=== PATIENT | female | born 1950 | race Caucasian/White ===

== ENCOUNTER 2017-11-28 08:43 | Emergency (ER) | payer BC ==
[2017-11-28] MEDS: ONDANSETRON PF 4 MG/2 ML VIAL. IV (09:23)
[2017-11-28 09:26] LABS: ADD MAN DIFF? NO
[2017-11-28 09:28] LABS: BASO % 0 % (0-3); EOS # 0.2 x10^3/uL (0.0-0.7); EOS % 2 % (0-3); HEMATOCRIT 40.8 % (36.0-47.0); HEMOGLOBIN 13.6 g/dL (12.0-15.5); LYMPH # 1.5 x10^3/uL (1.0-4.8); LYMPH % 14 % (24-48); MEAN CORPUSCULAR HEMOGLOBIN 30 pg (25-35); MEAN CORPUSCULAR HGB CONC 33 g/dL (31-37); MEAN CORPUSCULAR VOLUME 90 fL (79-100); MONO # 0.8 x10^3/uL (0.0-1.1); MONO % 8 % (0-9); NEUT # 8.2 x10^3uL (1.8-7.7); NEUT % 76 % (31-73); PLATELET COUNT 321 x10^3/uL (140-400); RED BLOOD COUNT 4.51 x10^6/uL (3.50-5.40); RED CELL DISTRIBUTION WIDTH 14.3 % (11.5-14.5); WHITE BLOOD COUNT 10.8 x10^3/uL (4.0-11.0)
[2017-11-28] MEDS: fentaNYL PF VIAL 100 MCG/2 ML VIAL IV (09:52)
[2017-11-28 09:54] LABS: BILIRUBIN,URINE NEGATIVE (NEG); CLARITY,URINE CLEAR; COLOR,URINE YELLOW; GLUCOSE,URINE NEGATIVE (NEG); NITRITE,URINE NEGATIVE (NEG); PH,URINE 7.5; PROTEIN,URINE NEGATIVE (NEG-TRACE); UROBILINOGEN,URINE 0.2 mg/dL (0.2 mg/dL)
[2017-11-28 10:05] LABS: SQUAMOUS EPITHELIAL CELL,UR MOD /LPF
[2017-11-28 10:06] LABS: BACTERIA,URINE FEW /HPF (0-FEW); RBC,URINE OCC /HPF (0-2)
[2017-11-28 10:17] LABS: ANION GAP 9 (6-14); BLOOD UREA NITROGEN 15 mg/dL (7-20); BUN/CREATININE RATIO 19 (6-20); CALCIUM 9.8 mg/dL (8.5-10.1); CARBON DIOXIDE 26 mmol/L (21-32); CHLORIDE 105 mmol/L (98-107); CREATININE 0.8 mg/dL (0.6-1.0); GLUCOSE 106 mg/dL (70-99); SODIUM 140 mmol/L (136-145)
[2017-11-28 10:22] LABS: LI 0.3 mmol/L (0.6-1.2)
[2017-11-28 10:23] LABS: ALBUMIN 3.6 g/dL (3.4-5.0); ALK PHOS 75 U/L (46-116); ALT (SGPT) 52 U/L (14-59); AST (SGOT) 29 U/L (15-37); LIPASE 146 U/L (73-393); TOTAL BILIRUBIN 0.5 mg/dL (0.2-1.0); TOTAL PROTEIN 7.3 g/dL (6.4-8.2)
== END 2017-11-28 12:00 | disposition home or self-care (01) ==
LOC: ER 08:43
DX: R10.31 Right lower quadrant pain (principal); R19.7 Diarrhea, unspecified; Z91.040 Latex allergy status
CPT/HCPCS: 36415; 80053; 80178; 81001; 83690; 85025; 87086; 96374; 96375; 99284-25; J2405; J3010

== ENCOUNTER 2017-11-29 07:13 | Inpatient (IN) | payer BC, MEDICARE ==
[2017-11-29 07:43] LABS: ADD MAN DIFF? NO
[2017-11-29 07:47] LABS: BASO % 0 % (0-3); EOS # 0.2 x10^3/uL (0.0-0.7); EOS % 2 % (0-3); HEMATOCRIT 43.6 % (36.0-47.0); HEMOGLOBIN 14.5 g/dL (12.0-15.5); LYMPH # 2.1 x10^3/uL (1.0-4.8); LYMPH % 18 % (24-48); MEAN CORPUSCULAR HEMOGLOBIN 31 pg (25-35); MEAN CORPUSCULAR HGB CONC 33 g/dL (31-37); MEAN CORPUSCULAR VOLUME 92 fL (79-100); MONO # 0.7 x10^3/uL (0.0-1.1); MONO % 6 % (0-9); NEUT # 8.9 x10^3uL (1.8-7.7); NEUT % 74 % (31-73); PLATELET COUNT 382 x10^3/uL (140-400); RED BLOOD COUNT 4.75 x10^6/uL (3.50-5.40); RED CELL DISTRIBUTION WIDTH 14.4 % (11.5-14.5)
[2017-11-29] MEDS ORDERED: CONTRAST GIVEN MC (08:00)
[2017-11-29 08:01] LABS: ANION GAP 15 (6-14); BLOOD UREA NITROGEN 16 mg/dL (7-20); BUN/CREATININE RATIO 16 (6-20); CALCIUM 8.9 mg/dL (8.5-10.1); CARBON DIOXIDE 22 mmol/L (21-32); CHLORIDE 105 mmol/L (98-107); GFR 55.6; GLUCOSE 146 mg/dL (70-99); POTASSIUM 4.1 mmol/L (3.5-5.1); SODIUM 142 mmol/L (136-145)
[2017-11-29 08:03] LABS: ALBUMIN 3.9 g/dL (3.4-5.0); ALBUMIN/GLOBULIN RATIO 1.1 (1.0-1.7); ALK PHOS 80 U/L (46-116); ALT (SGPT) 46 U/L (14-59); AST (SGOT) 21 U/L (15-37); LIPASE 113 U/L (73-393); TOTAL BILIRUBIN 0.5 mg/dL (0.2-1.0); TOTAL PROTEIN 7.4 g/dL (6.4-8.2)
[2017-11-29 08:05] LABS: TROPONINI < 0.017 ng/mL (0.000-0.055)
[2017-11-29 08:24] LABS: COLOR,URINE YELLOW
[2017-11-29 08:25] LABS: BACTERIA,URINE FEW /HPF (0-FEW); BILIRUBIN,URINE SMALL (NEG); CLARITY,URINE CLEAR; GLUCOSE,URINE NEGATIVE (NEG); NITRITE,URINE NEGATIVE (NEG); PH,URINE 5.5; PROTEIN,URINE 30 mg/dL (NEG-TRACE); RBC,URINE RARE /HPF (0-2); SQUAMOUS EPITHELIAL CELL,UR MOD /LPF; UROBILINOGEN,URINE 0.2 mg/dL (0.2 mg/dL); WBC,URINE OCC /HPF (0-4)
[2017-11-29 08:26] LABS: HYALINE CASTS, URINE FEW /HPF
[2017-11-29] MEDS: IOHEXOL 300 MG/ML 100ML VIAL. IV (08:47)
[2017-11-29] MEDS: ONDANSETRON PF 4 MG/2 ML VIAL. IV (09:05)
[2017-11-29] MEDS: IV NORMAL SALINE 1000ML BAG 1,000 ML IV (09:05)
[2017-11-29] MEDS: fentaNYL PF VIAL 100 MCG/2 ML VIAL IV (09:07)
[2017-11-29 09:59] LABS: FECAL OB PT POSITIVE (NEG); NEG OBC FOB NEG; POS OBC FOB POS
[2017-11-29] MEDS ORDERED: ACETAMINOPHEN 325 MG TABLET. PO (10:45)
[2017-11-29] MEDS ORDERED: ONDANSETRON PF 4 MG/2 ML VIAL. IV (10:45)
[2017-11-29] MEDS ORDERED: LORazepam 0.5 MG TABLET PO (16:15)
[2017-11-29] MEDS: POLYETHYLENE GLYCOL 3350 17 GM PACKET. PO (16:40)
[2017-11-29] MEDS: PANTOPRAZOLE IV PUSH 40 MG VIAL. IVP (16:41)
[2017-11-29] MEDS: ONDANSETRON ODT 4 MG TAB.RAPDIS. PO (17:20)
[2017-11-29] MEDS: MORPHINE SULFATE 4 MG/ML DISP.SYRIN. IV (17:21)
[2017-11-29] MEDS ORDERED: MAGNESIUM CITRATE 296 ML SOLUTION. PO (18:00)
[2017-11-29] MEDS: ALBUTEROL SULFATE 2.5 MG/3 ML NEBU. NEB (22:27)
[2017-11-30] MEDS: ONDANSETRON ODT 4 MG TAB.RAPDIS. PO ×4 (00:35→17:29)
[2017-11-30] MEDS: MORPHINE SULFATE 4 MG/ML DISP.SYRIN. IV (03:27)
[2017-11-30 05:40] LABS: ADD MAN DIFF? NO
[2017-11-30 05:46] LABS: BASO % 1 % (0-3); EOS # 0.3 x10^3/uL (0.0-0.7); EOS % 5 % (0-3); HEMATOCRIT 38.7 % (36.0-47.0); HEMOGLOBIN 12.7 g/dL (12.0-15.5); LYMPH % 28 % (24-48); MEAN CORPUSCULAR HEMOGLOBIN 30 pg (25-35); MEAN CORPUSCULAR HGB CONC 33 g/dL (31-37); MEAN CORPUSCULAR VOLUME 92 fL (79-100); MONO # 0.5 x10^3/uL (0.0-1.1); MONO % 7 % (0-9); NEUT % 59 % (31-73); PLATELET COUNT 286 x10^3/uL (140-400); RED BLOOD COUNT 4.22 x10^6/uL (3.50-5.40); RED CELL DISTRIBUTION WIDTH 14.7 % (11.5-14.5); WHITE BLOOD COUNT 6.9 x10^3/uL (4.0-11.0)
[2017-11-30] MEDS: MAGNESIUM CITRATE 296 ML SOLUTION. PO (05:50)
[2017-11-30 06:04] LABS: ALBUMIN/GLOBULIN RATIO 0.9 (1.0-1.7); ALK PHOS 65 U/L (46-116); ALT (SGPT) 38 U/L (14-59); ANION GAP 6 (6-14); AST (SGOT) 19 U/L (15-37); BLOOD UREA NITROGEN 10 mg/dL (7-20); BUN/CREATININE RATIO 13 (6-20); CALCIUM 8.7 mg/dL (8.5-10.1); CARBON DIOXIDE 27 mmol/L (21-32); CHLORIDE 107 mmol/L (98-107); CREATININE 0.8 mg/dL (0.6-1.0); GLUCOSE 96 mg/dL (70-99); POTASSIUM 3.6 mmol/L (3.5-5.1); SODIUM 140 mmol/L (136-145); TOTAL BILIRUBIN 0.5 mg/dL (0.2-1.0); TOTAL PROTEIN 6.3 g/dL (6.4-8.2)
[2017-11-30] MEDS: PANTOPRAZOLE IV PUSH 40 MG VIAL. IVP (08:51)
[2017-11-30] MEDS ORDERED: LITHIUM CARBONATE 300 MG CAPSULE PO (09:00)
[2017-11-30] MEDS: IV RINGERS,LACTATED 1000ML 1,000 ML IV (12:30)
[2017-11-30] MEDS ORDERED: PROPOFOL 40 ML IV (13:32)
[2017-11-30] MEDS ORDERED: LIDOCAINE 2% PF Vial for OR 5 ML VIAL. (13:33)
[2017-11-30] MEDS ORDERED: HYOSCYAMINE 0.125 MG TAB.RAPDIS PO (14:30)
[2017-11-30] MEDS: SUCRALFATE 1 GM TABLET. PO ×2 (17:29→20:42)
[2017-11-30] MEDS: DICYCLOMINE HCL 10 MG CAPSULE PO ×2 (17:29→20:42)
[2017-11-30] MEDS: ACETAMINOPHEN 325 MG TABLET. PO (17:29)
[2017-11-30] MEDS: LITHIUM CARBONATE 300 MG CAPSULE PO (17:29)
[2017-11-30] MEDS ORDERED: SUCRALFATE 1 GM TABLET. PO (21:00)
[2017-11-30] MEDS: ZOLPIDEM 5 MG TABLET. PO (21:22)
[2017-11-30 22:21] LABS: C DIFF BY PCR Negative (Negative)
[2017-12-01] MEDS: ONDANSETRON ODT 4 MG TAB.RAPDIS. PO ×2 (05:52)
[2017-12-01] MEDS: SUCRALFATE 1 GM TABLET. PO (08:54)
[2017-12-01] MEDS: DICYCLOMINE HCL 10 MG CAPSULE PO (08:54)
[2017-12-01] MEDS: PANTOPRAZOLE 40 MG TABLET.DR. PO (08:54)
== END 2017-12-01 10:06 | disposition home or self-care (01) | DRG 381 ==
LOC: ER 07:13 → 5 SOUTH 10:04
PROC: 0DJ08ZZ Inspection of Upper Intestinal Tract, Via Natural or Artificial Opening Endoscopic (ICD-10-PCS; principal; 2017-11-30 13:00)
PROC: 0DB98ZX Excision of Duodenum, Via Natural or Artificial Opening Endoscopic, Diagnostic (ICD-10-PCS; 2017-11-30 13:00)
PROC: 0DB68ZX Excision of Stomach, Via Natural or Artificial Opening Endoscopic, Diagnostic (ICD-10-PCS; 2017-11-30 13:00)
PROC: 0DB58ZX Excision of Esophagus, Via Natural or Artificial Opening Endoscopic, Diagnostic (ICD-10-PCS; 2017-11-30 13:00)
PROC: 0DBE8ZX Excision of Large Intestine, Via Natural or Artificial Opening Endoscopic, Diagnostic (ICD-10-PCS; 2017-11-30 13:00)
DX: K22.10 Ulcer of esophagus without bleeding (principal); F31.81 Bipolar II disorder; E66.9 Obesity, unspecified; Z68.35 Body mass index [BMI] 35.0-35.9, adult; G47.00 Insomnia, unspecified; J45.909 Unspecified asthma, uncomplicated; K21.0 Gastro-esophageal reflux disease with esophagitis; K29.70 Gastritis, unspecified, without bleeding; K44.9 Diaphragmatic hernia without obstruction or gangrene; Z91.040 Latex allergy status; R19.7 Diarrhea, unspecified
CPT/HCPCS: 36415; 71045; 74177; 80053; 81001; 82274; 83690; 84484; 85025; 87045; 87324; 88305; 88342; 93005; 94640; 96361; 96374; 96375; 99285; 99285-25; C9113; J2270; J2405; J2704; J3010; J7030; J7120; J7613; Q0162; Q9967

== ENCOUNTER 2019-01-09 11:51 | Inpatient (IN) | payer BC, MEDICARE ==
[~2019-01-09] VITALS: Ht 157.5 cm; Wt 88.5 kg
[~2019-01-09 11:51] MED LIST: DICY10CA3 PO; HYOS0.12 PO; ONDA4TAB7 PO; Pantoprazole PO; SUCR1TAB35 PO
[2019-01-09 12:18] LABS: BILIRUBIN,URINE NEGATIVE (NEG); CLARITY,URINE CLEAR; COLOR,URINE YELLOW; NITRITE,URINE NEGATIVE (NEG); PROTEIN,URINE NEGATIVE (NEG-TRACE); UROBILINOGEN,URINE 0.2 mg/dL (0.2 mg/dL)
[2019-01-09 12:36] LABS: BACTERIA,URINE FEW /HPF (0-FEW); RBC,URINE OCC /HPF (0-2); SQUAMOUS EPITHELIAL CELL,UR MANY /LPF
--- NOTE | 2019-01-09 12:44 | PHYS DOC ---
Past Medical History Past Medical History: Asthma, Bipolar Past Surgical History: Tonsillectomy Additional Past Surgical Histo: RIGHT FOOT SX Alcohol Use: None Drug Use: None Adult General Chief Complaint Chief Complaint: ABDOMINAL PAIN HPI HPI Patient is a 68 year old female presented to ER today for evaluation of abdominal pain, distention, constipation for 6 days. Patient had not had a bowel movement in 6 days. Patient feel nauseous, had not throw up yet. Patient was recently diagnosed with shingles on her buttock area, her doctor put on Valtrex and [place]. After taking several doses of [place] C become constipated. Patient had tried [id number] laxative and stool softener but not working. She gave herself an enema this morning but did not produce a bowel movement. Review of Systems Review of Systems Constitutional: Denies fever or chills [] Eyes: Denies change in visual acuity, redness, or eye pain [] HENT: Denies nasal congestion or sore throat [] Respiratory: Denies cough or shortness of breath [] Cardiovascular: No additional information not addressed in HPI [] GI: POSITIVE FOR abdominal pain, nausea, vomiting, CONSTIPATION, NO bloody stools or diarrhea [] : Denies dysuria or hematuria [] Musculoskeletal: Denies back pain or joint pain [] Integument: Denies rash or skin lesions [] Neurologic: Denies headache, focal weakness or sensory changes [] Endocrine: Denies polyuria or polydipsia [] All other systems were reviewed and found to be within normal limits, except as documented in this note. Current Medications Current Medications Current Medications Medications (Trade) Dose Ordered Sig/Mervin Start Time Stop Time Status Last Admin Dose Admin Iohexol (Omnipaque 240 Mg/ml) 50 ml 1X ONCE 01/09/19 12:45 01/09/19 12:46 DC 01/09/19 12:45 50 ML Iohexol (Omnipaque 300 Mg/ml) 75 ml 1X ONCE 01/09/19 12:45 01/09/19 12:46 DC 01/09/19 12:45 75 ML Lactulose (Lactulose) 20 gm ONCE STAT 01/09/19 14:42 01/09/19 14:50 DC 01/09/19 15:19 20 GM Methylnaltrexone [place] (Relistor) 12 mg 1X ONCE 01/09/19 12:45 01/09/19 12:46 DC 01/09/19 13:06 12 MG Ondansetron HCl (Zofran) 8 mg 1X ONCE 01/09/19 13:00 01/09/19 13:01 DC 01/09/19 13:05 8 MG Allergies Allergies Allergies Coded Allergies Type Severity Reaction Last Updated Verified latex Allergy Intermediate rash 11/30/17 Yes Physical Exam Physical Exam Constitutional: Well developed, well nourished, no acute distress, non-toxic appearance. [] HENT: Normocephalic, atraumatic, bilateral external ears normal, oropharynx moist, no oral exudates, nose normal. [] Eyes: PERRLA, EOMI, conjunctiva normal, no discharge. [] Neck: Normal range of motion, no tenderness, supple, no stridor. [] Cardiovascular:Heart rate regular rhythm, no murmur [] Lungs & Thorax: Bilateral breath sounds clear to auscultation [] Abdomen: Bowel sounds normal, TENDER TO PALPATION DIFFUSEDLY, MILD DISTENTION, no masses, no pulsatile masses. [] Skin: CRUSTED RASH ON LEFT BUTTOCK.... Back: No tenderness, no CVA tenderness. [] Extremities: No tenderness, no cyanosis, no clubbing, ROM intact, no edema. [] Neurologic: Alert and oriented X 3, normal motor function, normal sensory function, no focal deficits noted. [] Psychologic: Affect normal, judgement normal, mood normal. [] Current Patient Data Vital Signs Vital Signs Date Time Temp Pulse Resp B/P (MAP) Pulse Ox O2 Delivery O2 Flow Rate FiO2 01/09/19 18:10 78 20 122/90 (101) 95 Room Air 01/09/19 12:12 98.1 98.1 Lab Values Laboratory Tests Test 01/09/19 12:04 01/09/19 12:44 Urine Collection Type Unknown Urine Color Yellow Urine Clarity Clear Urine pH 6.0 Urine Specific [place] 1.010 Urine Protein Negative mg/dL (NEG-TRACE) Urine Glucose (UA) Negative mg/dL (NEG) Urine Ketones (Stick) Negative mg/dL (NEG) Urine Blood Negative (NEG) Urine Nitrite Negative (NEG) Urine Bilirubin Negative (NEG) Urine Urobilinogen Dipstick 0.2 mg/dL (0.2 mg/dL) Urine Leukocyte Esterase Small (NEG) Urine RBC Occ /HPF (0-2) Urine WBC 5-10 /HPF (0-4) Urine Squamous Epithelial Cells Many /LPF Urine Bacteria Few /HPF (0-FEW) Urine Mucus Marked /LPF White Blood Count 10.7 x10^3/uL (4.0-11.0) Red Blood Count 4.60 x10^6/uL (3.50-5.40) Hemoglobin 13.9 g/dL (12.0-15.5) Hematocrit 41.7 % (36.0-47.0) Mean Corpuscular Volume 91 fL (79-100) Mean Corpuscular Hemoglobin 30 pg (25-35) Mean Corpuscular Hemoglobin Concent 33 g/dL (31-37) Red Cell Distribution Width 14.3 % (11.5-14.5) Platelet Count 312 x10^3/uL (140-400) Neutrophils (%) (Auto) 76 % (31-73) H Lymphocytes (%) (Auto) 15 % (24-48) L Monocytes (%) (Auto) 7 % (0-9) Eosinophils (%) (Auto) 1 % (0-3) Basophils (%) (Auto) 1 % (0-3) Neutrophils # (Auto) 8.1 x10^3uL (1.8-7.7) H Lymphocytes # (Auto) 1.6 x10^3/uL (1.0-4.8) Monocytes # (Auto) 0.7 x10^3/uL (0.0-1.1) Eosinophils # (Auto) 0.1 x10^3/uL (0.0-0.7) Basophils # (Auto) 0.1 x10^3/uL (0.0-0.2) Prothrombin Time 13.2 SEC (11.7-14.0) Prothrombin Time INR 1.0 (0.8-1.1) PTT 31 SEC (24-38) Sodium Level 140 mmol/L (136-145) Potassium Level 3.7 mmol/L (3.5-5.1) Chloride Level 103 mmol/L (98-107) Carbon Dioxide Level 27 mmol/L (21-32) Anion Gap 10 (6-14) Blood Urea Nitrogen 17 mg/dL (7-20) Creatinine 0.7 mg/dL (0.6-1.0) Estimated GFR (Cockcroft-Gault) 83.7 BUN/Creatinine Ratio 24 (6-20) H Glucose Level 116 mg/dL (70-99) H Calcium Level 8.9 mg/dL (8.5-10.1) Total Bilirubin 0.5 mg/dL (0.2-1.0) Aspartate Amino Transferase (AST) 20 U/L (15-37) Alanine Aminotransferase (ALT) 46 U/L (14-59) Alkaline Phosphatase 64 U/L (46-116) Total Protein 7.2 g/dL (6.4-8.2) Albumin 3.4 g/dL (3.4-5.0) Albumin/Globulin Ratio 0.9 (1.0-1.7) L Lipase 73 U/L (73-393) Laboratory Tests 01/09/19 12:44 Laboratory Tests 01/09/19 12:44 EKG EKG [] Radiology/Procedures Radiology/Procedures [][facility] [address] [place] [address] IMAGING REPORT Signed PATIENT: CORNELIO MILLS ACCOUNT: [id number] : 1950 LOCATION: ER AGE: 68 SEX: F EXAM STATUS: REG ER ORD. PHYSICIAN: JESIKA ODEN DO REASON: ABDOMINAL PAIN, DISTENTION, NO BOWEL MOVEMENT FOR 6 DAYS PROCEDURE: CT ABD PELV W/ORAL&IV CONTRAST CT ABD PELV W/ORAL IV CONTRAST Indication: Abdominal pain, distention. No bowel movement for 6 days. Exposure: One or more of the following individualized dose reduction techniques were utilized for this examination: 1. Automated exposure control 2. Adjustment of the mA and/or kV according to patient size 3. Use of iterative reconstruction technique. Technique: Intravenous contrast was given. Oral contrast was given. COMPARISON: 11/29/2017. Minimal Lung base mild atelectasis. Small pericardial effusion, stable since prior study. Several hypodense lesions are identified in the liver, largest in the upper liver image 14 measuring 12 mm, unchanged. There is a smaller lesion in the left lobe, subcentimeter, not clearly seen previously which could be due to its small size. Spleen not enlarged. Pancreas appears unremarkable. No evidence of adrenal mass. Kidneys demonstrate symmetric enhancement without evidence of a dominant mass or hydronephrosis. No calcified gallstone. Aorta is patent and nonaneurysmal. Small aortocaval nodule compatible with a small lymph node measuring 5 mm short axis, stable since prior. No significant lymph node enlargement. Small hiatal hernia. No evidence of acute colitis. There is moderate retained stool in the colon. No significant small bowel obstruction. Appendix appears within normal limits. No evidence of significant pneumoperitoneum or ascites. Distention of the urinary bladder, measuring 17.5 cm length without evidence of significant wall thickening. Small uterine calcification identified, unchanged, may be due to a fibroid. No evidence of a pelvic mass. Vertebral body height and alignment are intact with degenerative spondylosis. No evidence of aggressive bone destruction. IMPRESSION: 1. Mild urinary bladder distention. 2. Small pericardial effusion unchanged. 3. Moderate constipation. Electronically signed by: Greg Candelario MD (01/09/2019 2:24 PM) [id number] DICTATED and SIGNED BY: GREG CANDELARIO MD DATE: 01/09/19 1424 Course & Med Decision Making Course & Med Decision Making Pertinent Labs and Imaging studies reviewed. (See chart for details) PATIENT COULD NOT HAVE A BOWEL MOVEMENT IN THE ER DESPITE OF TREATMENT, WILL ADMIT HER TO THE HOSPITAL. Dragon Disclaimer Dragwagner Disclaimer This electronic medical record was generated, in whole or in part, using a voice recognition dictation system. Departure Departure Impression: Primary Impression: Constipation Additional Impressions: Shingles rash Abdominal pain Disposition: 09 ADMITTED INPATIENT Admitting Physician: Marlene Connell Condition: STABLE Referrals: JULIA GEORGE (PCP) Problem Qualifiers JESIKA ODEN DO January 09, 2019 12:44
[2019-01-09] MEDS ORDERED: METHYLNALTREXONE 12 MG/0.6 ML VIAL. SQ ONE (12:45)
[2019-01-09] MEDS ORDERED: IOHEXOL 240 MG/ML 50ML VIAL. PO ONE (12:45)
[2019-01-09] MEDS ORDERED: IOHEXOL 300 MG/ML 100ML VIAL. IV ONE (12:45)
[2019-01-09 12:58] LABS: BASO # 0.1 x10^3/uL (0.0-0.2); BASO % 1 % (0-3); EOS # 0.1 x10^3/uL (0.0-0.7); EOS % 1 % (0-3); HEMATOCRIT 41.7 % (36.0-47.0); HEMOGLOBIN 13.9 g/dL (12.0-15.5); LYMPH # 1.6 x10^3/uL (1.0-4.8); LYMPH % 15 % (24-48); MEAN CORPUSCULAR HEMOGLOBIN 30 pg (25-35); MEAN CORPUSCULAR HGB CONC 33 g/dL (31-37); MEAN CORPUSCULAR VOLUME 91 fL (79-100); MONO # 0.7 x10^3/uL (0.0-1.1); MONO % 7 % (0-9); NEUT # 8.1 x10^3uL (1.8-7.7); NEUT % 76 % (31-73); PLATELET COUNT 312 x10^3/uL (140-400); RED CELL DISTRIBUTION WIDTH 14.3 % (11.5-14.5); WHITE BLOOD COUNT 10.7 x10^3/uL (4.0-11.0)
[2019-01-09] MEDS ORDERED: ONDANSETRON PF 4 MG/2 ML VIAL. IV ONE (13:00)
[2019-01-09 13:08] LABS: CALCIUM 8.9 mg/dL (8.5-10.1); CREATININE 0.7 mg/dL (0.6-1.0); GFR 83.7; POTASSIUM 3.7 mmol/L (3.5-5.1)
[2019-01-09 13:14] LABS: PROTHROMBIN TIME PATIENT 13.2 SEC (11.7-14.0)
[2019-01-09 13:15] LABS: ALBUMIN 3.4 g/dL (3.4-5.0); ALBUMIN/GLOBULIN RATIO 0.9 (1.0-1.7); TOTAL BILIRUBIN 0.5 mg/dL (0.2-1.0); TOTAL PROTEIN 7.2 g/dL (6.4-8.2)
--- NOTE | 2019-01-09 14:27 | RAD ---
CT ABD PELV W/ORAL IV CONTRAST Indication: Abdominal pain, distention. No bowel movement for 6 days. Exposure: One or more of the following individualized dose reduction techniques were utilized for this examination: 1. Automated exposure control 2. Adjustment of the mA and/or kV according to patient size 3. Use of iterative reconstruction technique. Technique: Intravenous contrast was given. Oral contrast was given. COMPARISON: 11/29/2017. Minimal Lung base mild atelectasis. Small pericardial effusion, stable since prior study. Several hypodense lesions are identified in the liver, largest in the upper liver image 14 measuring 12 mm, unchanged. There is a smaller lesion in the left lobe, subcentimeter, not clearly seen previously which could be due to its small size. Spleen not enlarged. Pancreas appears unremarkable. No evidence of adrenal mass. Kidneys demonstrate symmetric enhancement without evidence of a dominant mass or hydronephrosis. No calcified gallstone. Aorta is patent and nonaneurysmal. Small aortocaval nodule compatible with a small lymph node measuring 5 mm short axis, stable since prior. No significant lymph node enlargement. Small hiatal hernia. No evidence of acute colitis. There is moderate retained stool in the colon. No significant small bowel obstruction. Appendix appears within normal limits. No evidence of significant pneumoperitoneum or ascites. Distention of the urinary bladder, measuring 17.5 cm length without evidence of significant wall thickening. Small uterine calcification identified, unchanged, may be due to a fibroid. No evidence of a pelvic mass. Vertebral body height and alignment are intact with degenerative spondylosis. No evidence of aggressive bone destruction. IMPRESSION: 1. Mild urinary bladder distention. 2. Small pericardial effusion unchanged. 3. Moderate constipation. Electronically signed by: Greg Candelario MD (01/09/2019 2:24 PM) [facility]
[2019-01-09] MEDS ORDERED: LACTULOSE 20 GM/30 ML SOLUTION. PO STA (14:42)
[2019-01-09] MEDS ORDERED: ONDANSETRON PF 4 MG/2 ML VIAL. IV PRN (18:30)
--- NOTE | 2019-01-09 19:56 | PDOC1 ---
History and Physical Date of Admission Date of Admission DATE: 01/09/19 TIME: 19:52 Source Source: Chart review, Patient History of Present Illness History of Present Illness Ms. Toro is a 68 year old female admit w. acute bdominal pain, distention, she has no bowel movement over 5 days, started norco for shingles pain last week, and not stayed ahead with with stool softeners, she took 2 today. no BM for days, new shingles diagnosis, buttock area, otherwise usually healthy, Past Medical History Cardiovascular: No pertinent hx Pulmonary: Asthma GI: No pertinent hx Heme/Onc: No pertinent hx Hepatobiliary: No pertinent hx Psych: Bipolar Rheumatologic: No pertinent hx Infectious disease: No pertinent hx Past Surgical History Past Surgical History: No pertinent history Family History Family History: No Significant Social History Smoke: No ALCOHOL: rare Drugs: None Current Problem List Problem List Problems Medical Problems: (1) Abdominal pain Status: Acute (2) Constipation Status: Acute (3) Shingles rash Status: Acute Current Medications Current Medications Current Medications Methylnaltrexone [place] (Relistor) 12 mg 1X ONCE SQ Last administered on 01/09/19at 13:06; Start 01/09/19 at 12:45; Stop 01/09/19 at 12:46; Status DC Iohexol (Omnipaque 300 Mg/ml) 75 ml 1X ONCE IV Last administered on 01/09/19at 12:45; Start 01/09/19 at 12:45; Stop 01/09/19 at 12:46; Status DC Iohexol (Omnipaque 240 Mg/ml) 50 ml 1X ONCE PO Last administered on 01/09/19at 12:45; Start 01/09/19 at 12:45; Stop 01/09/19 at 12:46; Status DC Ondansetron HCl (Zofran) 8 mg 1X ONCE IV Last administered on 01/09/19at 13:05; Start 01/09/19 at 13:00; Stop 01/09/19 at 13:01; Status DC Lactulose (Lactulose) 20 gm ONCE STAT PO Last administered on 01/09/19at 15:19; Start 01/09/19 at 14:42; Stop 01/09/19 at 14:50; Status DC Ondansetron HCl (Zofran) 4 mg PRN Q8HRS PRN IV NAUSEA/VOMITING; Start 01/09/19 at 18:30; Stop 01/10/19 at 18:29 Sodium Chloride 1,000 ml @ 75 mls/hr [id number] IV ; Start 01/09/19 at 18:29; Stop 01/10/19 at 18:28 Active Scripts Active [Pantoprazole] 40 MG Tablet.dr 40 Mg PO BID 2 weeks BID, then daily Carafate (Sucralfate) 1 Gm Tablet 1 Gm PO BID Anaspaz (Hyoscyamine Sulfate) 0.125 Mg Tab.rapdis 0.125 Mg PO PRN Q4HRS PRN Dicyclomine Hcl 10 Mg Capsule 10 Mg PO TID Zofran (Ondansetron Hcl) 4 Mg Tablet 1 Tab PO Q6HRS Allergies Allergies: Coded Allergies: latex (Verified Allergy, Intermediate, rash, 11/30/17) ROS General: YES: Chills; No: Night Sweats, Fatigue, Malaise, Appetite, Other PSYCHOLOGICAL ROS: YES: Sleep disturbances; No: Anxiety, Behavioral Disorder, Concentration difficultie, Decreased libido, Depression, Disorientation, Hallucinations, Hostility, Irritablity, Memory difficulties, Mood Swings, Obsessive thoughts, Suicidal ideation, Other Eyes: No Blurry vision, No Decreased vision, No Double vision, No Dry eyes, No Excessive tearing, No Eye Pain, No Itchy Eyes, No Loss of vision, No Photophobia, No Scotomata, No Uses contacts, No Uses glasses, No Other HEENT: No: Heacaches, Visual Changes, Hearing change, Nasal congestion, Nasal discharge, Oral lesions, Sinus pain, Sore Throat, Epistaxis, Sneezing, Snoring, Tinnitus, Vertigo, Vocal changes, Other Respiratory: No: Cough, Hemoptysis, Orthopnea, Pleuritic Pain, Shortness of breath, SOB with excertion, Sputum Changes, Stridor, Tachypnea, Wheezing, Other Cardiovascular: No Chest Pain, No Palpitations, No Orthopnea, No Paroxysmal Noc. Dyspnea, No Edema, No Lt Headedness, No Other Gastrointestinal: Yes Nausea, Yes Abdominal Pain, Yes Constipation Genitourinary: No Dysuria, No Frequency, No Incontinence, No Hematuria, No Retention, No Discharge, No Urgency, No Pain, No Flank Pain, No Other, No , No , No , No , No , No , No Musculoskeletal: No Gait Disturbance, No Joint Pain, No Joint Stiffness, No Joint Swelling, No Muscle Pain, No Muscular Weakness, No Pain In:, No Swelling In:, No Other Neurological: No Behavorial Changes, No Bowel/Bladder ControlChng, No Confusion, No Dizziness, No Gait Disturbance, No Headaches, No Impaired Coord/balance, No Memory Loss, No Numbness/Tingling, No Seizures, No Speech Problems, No Tremors, No Visual Changes, No Weakness, No Other Skin: Yes Dry Skin; No Eczema, No Hair Changes, No Lumps, No Mole Changes, No Mottling, No Nail Changes, No Pruritus, No Rash, No Skin Lesion Changes, No Other, No Acne Physical Exam General: Alert, Oriented X3, Cooperative, moderate distress HEENT: Atraumatic, PERRLA, EOMI, Mucous membr. moist/pink Lungs: Clear to auscultation Heart: S1S2, no gallops, no murmurs Abdomen: Soft (tender, distended, hypoactive sounds) Extremities: No edema, Normal pulses Skin: No significant lesion Neuro: Normal gait, Sensation intact, Cranial nerves 3-12 NL Psych/Mental Status: Mental status NL, Mood NL Vitals Vitals Vital Signs Date Time Temp Pulse Resp B/P (MAP) Pulse Ox O2 Delivery O2 Flow Rate FiO2 01/09/19 18:10 78 20 122/90 (101) 95 Room Air 01/09/19 12:12 98.1 98.1 Labs Labs Laboratory Tests Test 01/09/19 12:04 01/09/19 12:44 Urine Collection Type Unknown Urine Color Yellow Urine Clarity Clear Urine pH 6.0 Urine Specific [place] 1.010 Urine Protein Negative mg/dL (NEG-TRACE) Urine Glucose (UA) Negative mg/dL (NEG) Urine Ketones (Stick) Negative mg/dL (NEG) Urine Blood Negative (NEG) Urine Nitrite Negative (NEG) Urine Bilirubin Negative (NEG) Urine Urobilinogen Dipstick 0.2 mg/dL (0.2 mg/dL) Urine Leukocyte Esterase Small (NEG) Urine RBC Occ /HPF (0-2) Urine WBC 5-10 /HPF (0-4) Urine Squamous Epithelial Cells Many /LPF Urine Bacteria Few /HPF (0-FEW) Urine Mucus Marked /LPF White Blood Count 10.7 x10^3/uL (4.0-11.0) Red Blood Count 4.60 x10^6/uL (3.50-5.40) Hemoglobin 13.9 g/dL (12.0-15.5) Hematocrit 41.7 % (36.0-47.0) Mean Corpuscular Volume 91 fL (79-100) Mean Corpuscular Hemoglobin 30 pg (25-35) Mean Corpuscular Hemoglobin Concent 33 g/dL (31-37) Red Cell Distribution Width 14.3 % (11.5-14.5) Platelet Count 312 x10^3/uL (140-400) Neutrophils (%) (Auto) 76 % (31-73) Lymphocytes (%) (Auto) 15 % (24-48) Monocytes (%) (Auto) 7 % (0-9) Eosinophils (%) (Auto) 1 % (0-3) Basophils (%) (Auto) 1 % (0-3) Neutrophils # (Auto) 8.1 x10^3uL (1.8-7.7) Lymphocytes # (Auto) 1.6 x10^3/uL (1.0-4.8) Monocytes # (Auto) 0.7 x10^3/uL (0.0-1.1) Eosinophils # (Auto) 0.1 x10^3/uL (0.0-0.7) Basophils # (Auto) 0.1 x10^3/uL (0.0-0.2) Prothrombin Time 13.2 SEC (11.7-14.0) Prothromb Time International Ratio 1.0 (0.8-1.1) Activated Partial Thromboplast Time 31 SEC (24-38) Sodium Level 140 mmol/L (136-145) Potassium Level 3.7 mmol/L (3.5-5.1) Chloride Level 103 mmol/L (98-107) Carbon Dioxide Level 27 mmol/L (21-32) Anion Gap 10 (6-14) Blood Urea Nitrogen 17 mg/dL (7-20) Creatinine 0.7 mg/dL (0.6-1.0) Estimated GFR (Cockcroft-Gault) 83.7 BUN/Creatinine Ratio 24 (6-20) Glucose Level 116 mg/dL (70-99) Calcium Level 8.9 mg/dL (8.5-10.1) Total Bilirubin 0.5 mg/dL (0.2-1.0) Aspartate Amino Transf (AST/SGOT) 20 U/L (15-37) Alanine Aminotransferase (ALT/SGPT) 46 U/L (14-59) Alkaline Phosphatase 64 U/L (46-116) Total Protein 7.2 g/dL (6.4-8.2) Albumin 3.4 g/dL (3.4-5.0) Albumin/Globulin Ratio 0.9 (1.0-1.7) Lipase 73 U/L (73-393) Laboratory Tests Test 01/09/19 12:04 01/09/19 12:44 Urine Collection Type Unknown Urine Color Yellow Urine Clarity Clear Urine pH 6.0 Urine Specific [place] 1.010 Urine Protein Negative mg/dL (NEG-TRACE) Urine Glucose (UA) Negative mg/dL (NEG) Urine Ketones (Stick) Negative mg/dL (NEG) Urine Blood Negative (NEG) Urine Nitrite Negative (NEG) Urine Bilirubin Negative (NEG) Urine Urobilinogen Dipstick 0.2 mg/dL (0.2 mg/dL) Urine Leukocyte Esterase Small (NEG) Urine RBC Occ /HPF (0-2) Urine WBC 5-10 /HPF (0-4) Urine Squamous Epithelial Cells Many /LPF Urine Bacteria Few /HPF (0-FEW) Urine Mucus Marked /LPF White Blood Count 10.7 x10^3/uL (4.0-11.0) Red Blood Count 4.60 x10^6/uL (3.50-5.40) Hemoglobin 13.9 g/dL (12.0-15.5) Hematocrit 41.7 % (36.0-47.0) Mean Corpuscular Volume 91 fL (79-100) Mean Corpuscular Hemoglobin 30 pg (25-35) Mean Corpuscular Hemoglobin Concent 33 g/dL (31-37) Red Cell Distribution Width 14.3 % (11.5-14.5) Platelet Count 312 x10^3/uL (140-400) Neutrophils (%) (Auto) 76 % (31-73) Lymphocytes (%) (Auto) 15 % (24-48) Monocytes (%) (Auto) 7 % (0-9) Eosinophils (%) (Auto) 1 % (0-3) Basophils (%) (Auto) 1 % (0-3) Neutrophils # (Auto) 8.1 x10^3uL (1.8-7.7) Lymphocytes # (Auto) 1.6 x10^3/uL (1.0-4.8) Monocytes # (Auto) 0.7 x10^3/uL (0.0-1.1) Eosinophils # (Auto) 0.1 x10^3/uL (0.0-0.7) Basophils # (Auto) 0.1 x10^3/uL (0.0-0.2) Prothrombin Time 13.2 SEC (11.7-14.0) Prothromb Time International Ratio 1.0 (0.8-1.1) Activated Partial Thromboplast Time 31 SEC (24-38) Sodium Level 140 mmol/L (136-145) Potassium Level 3.7 mmol/L (3.5-5.1) Chloride Level 103 mmol/L (98-107) Carbon Dioxide Level 27 mmol/L (21-32) Anion Gap 10 (6-14) Blood Urea Nitrogen 17 mg/dL (7-20) Creatinine 0.7 mg/dL (0.6-1.0) Estimated GFR (Cockcroft-Gault) 83.7 BUN/Creatinine Ratio 24 (6-20) Glucose Level 116 mg/dL (70-99) Calcium Level 8.9 mg/dL (8.5-10.1) Total Bilirubin 0.5 mg/dL (0.2-1.0) Aspartate Amino Transf (AST/SGOT) 20 U/L (15-37) Alanine Aminotransferase (ALT/SGPT) 46 U/L (14-59) Alkaline Phosphatase 64 U/L (46-116) Total Protein 7.2 g/dL (6.4-8.2) Albumin 3.4 g/dL (3.4-5.0) Albumin/Globulin Ratio 0.9 (1.0-1.7) Lipase 73 U/L (73-393) VTE Prophylaxis Ordered VTE Prophylaxis Devices: Yes VTE Pharmacological Prophylaxi: Yes Assessment/Plan Assessment/Plan acute abdominal pain obstipation, constipation relistor, lactulose, miralax, enema, may repeat admit obs obese, BMI 34 acute shingles, bladder spasm hx RIC BLANCO MD January 09, 2019 19:56
[2019-01-09] MEDS ORDERED: POLYETHYLENE GLYCOL 3350 BTL 238 GM POWDER PO ONE (20:00)
[2019-01-09] MEDS ORDERED: HYOSCYAMINE 0.125 MG TAB.RAPDIS PO PRN (20:00)
[2019-01-09] MEDS ORDERED: SENNOSIDES/DOCUSATE 8.6/50MG TABLET. PO PRN (20:15)
[2019-01-09] MEDS: IV NORMAL SALINE 1000ML BAG 1,000 ML IV SCH (20:26)
[2019-01-09] MEDS: DICYCLOMINE HCL 10 MG CAPSULE PO SCH (20:38)
[2019-01-09] MEDS: PANTOPRAZOLE 40 MG TABLET.DR. PO SCH (20:38)
[2019-01-09] MEDS: SUCRALFATE 1 GM TABLET. PO SCH (20:38)
[2019-01-09] MEDS: POLYETHYLENE GLYCOL 3350 17 GM PACKET. PO SCH (21:08)
[2019-01-09] MEDS: valACYclovir 500 MG TABLET. PO SCH (21:08)
[2019-01-09 23:30] VITALS: BP 119/87
[2019-01-10] MEDS: oxyCODONE/APAP 5/325 1 TAB TABLET PO PRN ×4 (00:35→15:18)
[2019-01-10] MEDS: IV NORMAL SALINE 1000ML BAG 1,000 ML IV SCH (00:35)
[2019-01-10 03:00] VITALS: BP 116/62
[2019-01-10] MEDS: PANTOPRAZOLE 40 MG TABLET.DR. PO SCH ×2 (05:40→15:18)
[2019-01-10 07:00] VITALS: BP 115/65
[2019-01-10] MEDS: DICYCLOMINE HCL 10 MG CAPSULE PO SCH ×3 (08:11→20:58)
[2019-01-10] MEDS: valACYclovir 500 MG TABLET. PO SCH ×3 (08:11→20:56)
[2019-01-10] MEDS: SUCRALFATE 1 GM TABLET. PO SCH ×2 (08:11→20:56)
[2019-01-10] MEDS: POLYETHYLENE GLYCOL 3350 17 GM PACKET. PO SCH ×2 (08:11→20:57)
[2019-01-10] MEDS: DOCUSATE SODIUM 100 MG CAPSULE. PO SCH (08:11)
[2019-01-10 11:00] VITALS: BP 118/69
--- NOTE | 2019-01-10 11:13 | NUR ---
SW following for discharge planning. Discussed with RN, pt is from home, indp, on PO meds. RN advised no SW needs. SW will continue to follow should any discharge needs arise.
[2019-01-10] MEDS ORDERED: DOCUSATE SODIUM 100 MG CAPSULE. PO SCH (13:00)
[2019-01-10] MEDS ORDERED: POLYETHYLENE GLYCOL 3350 17 GM PACKET. PO SCH (13:00)
--- NOTE | 2019-01-10 13:28 | PDOC ---
PROGRESS NOTES Chief Complaint Chief Complaint acute abdominal pain obstipation, constipation obese, BMI 34 acute shingles, Plan; treat perineal pain sicne due to her shingles is quite painful and patient has exquisite pain at the present time will start bowel regimen as well will start neurontin and toradol for pain management reeval in the am History of Present Illness History of Present Illness quite distressed during my visit. Patient tearful at times. Patient denies fever, she does feel better after bowel movement. Vitals Vitals Vital Signs Date Time Temp Pulse Resp B/P (MAP) Pulse Ox O2 Delivery O2 Flow Rate FiO2 01/10/19 11:42 Room Air 01/10/19 11:00 97.8 77 18 118/69 (85) 92 97.8 Physical Exam General: Alert, Oriented X3, Cooperative, moderate distress Abdomen: Soft (tender, distended, hypoactive sounds) Extremities: No edema, Normal pulses Skin: No significant lesion Review of Systems Review of Systems Pertinent as per history of present illness otherwise 14 point review of system is negative Assessment and Plan Assessmemt and Plan Problems Medical Problems: (1) Abdominal pain Status: Acute (2) Constipation Status: Acute (3) Shingles rash Status: Acute Comment Review of Relevant I have reviewed the following items esau (where applicable) has been applied. Labs Laboratory Tests Test 01/09/19 12:04 01/09/19 12:44 Urine Collection Type Unknown Urine Color Yellow Urine Clarity Clear Urine pH 6.0 Urine Specific Pinson 1.010 Urine Protein Negative mg/dL (NEG-TRACE) Urine Glucose (UA) Negative mg/dL (NEG) Urine Ketones (Stick) Negative mg/dL (NEG) Urine Blood Negative (NEG) Urine Nitrite Negative (NEG) Urine Bilirubin Negative (NEG) Urine Urobilinogen Dipstick 0.2 mg/dL (0.2 mg/dL) Urine Leukocyte Esterase Small (NEG) Urine RBC Occ /HPF (0-2) Urine WBC 5-10 /HPF (0-4) Urine Squamous Epithelial Cells Many /LPF Urine Bacteria Few /HPF (0-FEW) Urine Mucus Marked /LPF White Blood Count 10.7 x10^3/uL (4.0-11.0) Red Blood Count 4.60 x10^6/uL (3.50-5.40) Hemoglobin 13.9 g/dL (12.0-15.5) Hematocrit 41.7 % (36.0-47.0) Mean Corpuscular Volume 91 fL (79-100) Mean Corpuscular Hemoglobin 30 pg (25-35) Mean Corpuscular Hemoglobin Concent 33 g/dL (31-37) Red Cell Distribution Width 14.3 % (11.5-14.5) Platelet Count 312 x10^3/uL (140-400) Neutrophils (%) (Auto) 76 % (31-73) Lymphocytes (%) (Auto) 15 % (24-48) Monocytes (%) (Auto) 7 % (0-9) Eosinophils (%) (Auto) 1 % (0-3) Basophils (%) (Auto) 1 % (0-3) Neutrophils # (Auto) 8.1 x10^3uL (1.8-7.7) Lymphocytes # (Auto) 1.6 x10^3/uL (1.0-4.8) Monocytes # (Auto) 0.7 x10^3/uL (0.0-1.1) Eosinophils # (Auto) 0.1 x10^3/uL (0.0-0.7) Basophils # (Auto) 0.1 x10^3/uL (0.0-0.2) Prothrombin Time 13.2 SEC (11.7-14.0) Prothromb Time International Ratio 1.0 (0.8-1.1) Activated Partial Thromboplast Time 31 SEC (24-38) Sodium Level 140 mmol/L (136-145) Potassium Level 3.7 mmol/L (3.5-5.1) Chloride Level 103 mmol/L (98-107) Carbon Dioxide Level 27 mmol/L (21-32) Anion Gap 10 (6-14) Blood Urea Nitrogen 17 mg/dL (7-20) Creatinine 0.7 mg/dL (0.6-1.0) Estimated GFR (Cockcroft-Gault) 83.7 BUN/Creatinine Ratio 24 (6-20) Glucose Level 116 mg/dL (70-99) Calcium Level 8.9 mg/dL (8.5-10.1) Total Bilirubin 0.5 mg/dL (0.2-1.0) Aspartate Amino Transf (AST/SGOT) 20 U/L (15-37) Alanine Aminotransferase (ALT/SGPT) 46 U/L (14-59) Alkaline Phosphatase 64 U/L (46-116) Total Protein 7.2 g/dL (6.4-8.2) Albumin 3.4 g/dL (3.4-5.0) Albumin/Globulin Ratio 0.9 (1.0-1.7) Lipase 73 U/L (73-393) Medications Current Medications Methylnaltrexone Odem (Relistor) 12 mg 1X ONCE SQ Last administered on 01/09/19at 13:06; Start 01/09/19 at 12:45; Stop 01/09/19 at 12:46; Status DC Iohexol (Omnipaque 300 Mg/ml) 75 ml 1X ONCE IV Last administered on 01/09/19at 12:45; Start 01/09/19 at 12:45; Stop 01/09/19 at 12:46; Status DC Iohexol (Omnipaque 240 Mg/ml) 50 ml 1X ONCE PO Last administered on 01/09/19at 12:45; Start 01/09/19 at 12:45; Stop 01/09/19 at 12:46; Status DC Ondansetron HCl (Zofran) 8 mg 1X ONCE IV Last administered on 01/09/19at 13:05; Start 01/09/19 at 13:00; Stop 01/09/19 at 13:01; Status DC Lactulose (Lactulose) 20 gm ONCE STAT PO Last administered on 01/09/19at 15:19; Start 01/09/19 at 14:42; Stop 01/09/19 at 14:50; Status DC Ondansetron HCl (Zofran) 4 mg PRN Q8HRS PRN IV NAUSEA/VOMITING; Start 01/09/19 at 18:30; Stop 01/10/19 at 18:29 Sodium Chloride 1,000 ml @ 75 mls/hr [id number] IV Last administered on 01/10/19at 00:35; Start 01/09/19 at 18:29; Stop 01/10/19 at 18:28 Polyethylene Glycol (miraLAX Powder BULK BOTTLE) 238 gm 1X ONCE PO ; Start 01/09/19 at 20:00; Stop 01/09/19 at 20:01; Status UNV Dicyclomine HCl (Bentyl) 10 mg TID PO Last administered on 01/10/19 08:11; Start 01/09/19 at 21:00 Hyoscyamine (Anaspaz) 0.125 mg PRN Q4HRS PRN PO STOMACH CRAMPING; Start at 20:00 Sucralfate (Carafate) 1 gm BID PO Last administered on 01/10/19 08:11; Start 01/09/19 at 21:00 Pantoprazole Sodium (Protonix) 40 mg BIDAC PO Last administered on 01/10/19 05:40; Start 01/09/19 at 20:00 Valacyclovir HCl (Valtrex) 1,000 mg TID PO Last administered on 01/10/19 08:11; Start 01/09/19 at 21:00 Polyethylene Glycol (miraLAX PACKET) 17 gm TID PO Last administered on 01/10/19 08:11; Start 01/09/19 at 21:00 Docusate Sodium (Colace) 100 mg DAILY PO Last administered on 01/10/19 08:11; Start 01/10/19 at 09:00 Senna/Docusate Sodium (Senna Plus) 2 tab PRN BID PRN PO CONSTIPATION; Start 01/09/19 at 20:15 Oxycodone/ Acetaminophen (Percocet 5/325) 1 tab PRN Q4HRS PRN PO SEVERE PAIN Last administered on 01/10/19at 10:47; Start 01/10/19 at 00:30 Docusate Sodium (Colace) 100 mg DAILY PO ; Start 01/10/19 at 13:00; Stop 01/10/19 at 13:21; Status DC Polyethylene Glycol (miraLAX PACKET) 17 gm DAILY PO ; Start 01/10/19 at 13:00; Stop 01/10/19 at 13:21; Status DC Gabapentin (Neurontin) 100 mg TID PO ; Start 01/10/19 at 14:00 Active Scripts Active [Pantoprazole] 40 MG Tablet.dr 40 Mg PO BID 2 weeks BID, then daily Carafate (Sucralfate) 1 Gm Tablet 1 Gm PO BID Anaspaz (Hyoscyamine Sulfate) 0.125 Mg Tab.rapdis 0.125 Mg PO PRN Q4HRS PRN Dicyclomine Hcl 10 Mg Capsule 10 Mg PO TID Zofran (Ondansetron Hcl) 4 Mg Tablet 1 Tab PO Q6HRS Vitals/I & O Vital Sign - Last 24 Hours 01/09/19 01/09/19 01/09/19 01/09/19 14:15 15:15 16:15 17:15 Pulse 84 88 90 78 Resp 20 20 20 20 B/P (MAP) 134/87 (103) 126/73 (90) 117/65 (82) 119/68 (85) Pulse Ox 94 95 95 95 O2 Delivery Room Air Room Air Room Air Room Air 01/09/19 01/09/19 01/09/19 01/10/19 18:10 23:30 23:30 00:35 Temp 98.1 98.1 Pulse 78 90 Resp 20 18 18 B/P (MAP) 122/90 (101) 119/87 (98) Pulse Ox 95 93 O2 Delivery Room Air Room Air Room Air Room Air 01/10/19 01/10/19 01/10/19 01/10/19 03:00 05:41 06:41 07:00 Temp 98.1 97.9 98.1 97.9 Pulse 82 67 Resp 18 18 18 18 B/P (MAP) 116/62 (80) 115/65 (82) Pulse Ox 93 90 O2 Delivery Room Air Room Air Room Air 01/10/19 01/10/19 01/10/19 01/10/19 07:29 10:47 11:00 11:42 Temp 97.8 97.8 Pulse 77 Resp 18 B/P (MAP) 118/69 (85) Pulse Ox 90 92 O2 Delivery Room Air Room Air Room Air Room Air SUNNY SAHA MD January 10, 2019 13:28
[2019-01-10] MEDS: GABAPENTIN 100 MG CAPSULE. PO SCH ×2 (13:58→20:56)
[2019-01-10 15:00] VITALS: BP 105/63
[2019-01-10 19:00] VITALS: BP 129/76
[2019-01-10] MEDS: KETOROLAC 30 MG/ML VIAL. IV PRN (20:57)
[2019-01-10] MEDS ORDERED: cefTRIAXone IV Push 1 GM VIAL. IVP ONE (21:00)
[2019-01-10 23:00] VITALS: BP 100/46
[2019-01-11 03:00] VITALS: BP 114/68
[2019-01-11] MEDS: KETOROLAC 30 MG/ML VIAL. IV PRN (05:36)
[2019-01-11] MEDS: PANTOPRAZOLE 40 MG TABLET.DR. PO SCH ×2 (05:37→16:30)
[2019-01-11] MEDS: oxyCODONE/APAP 5/325 1 TAB TABLET PO PRN (05:37)
[2019-01-11 07:00] VITALS: BP 108/73
[2019-01-11] MEDS: DICYCLOMINE HCL 10 MG CAPSULE PO SCH ×3 (08:59→20:58)
[2019-01-11] MEDS: GABAPENTIN 100 MG CAPSULE. PO SCH (08:59)
[2019-01-11] MEDS: SUCRALFATE 1 GM TABLET. PO SCH ×2 (08:59→19:47)
[2019-01-11] MEDS: POLYETHYLENE GLYCOL 3350 17 GM PACKET. PO SCH ×2 (08:59→20:59)
[2019-01-11] MEDS: DOCUSATE SODIUM 100 MG CAPSULE. PO SCH (08:59)
[2019-01-11] MEDS: valACYclovir 500 MG TABLET. PO SCH ×3 (08:59→20:58)
[2019-01-11] MEDS: MORPHINE SULFATE 4 MG/ML VIAL. IV PRN ×3 (09:56→19:48)
[2019-01-11] MEDS: GABAPENTIN 300 MG CAPSULE. PO SCH ×3 (09:57→20:58)
[2019-01-11] MEDS ORDERED: CAPSAICIN 0.025% TOPICAL CREAM 60GM TUBE. TP SCH (10:00)
[2019-01-11 11:00] VITALS: BP 161/70
--- NOTE | 2019-01-11 13:18 | NUR ---
SW following for discharge planning. Discussed with RN, pt having a lot of pain today. RN anticipates pt may discharge home tomorrow (01/12/19). RN advised no SW needs at this time. SW will continue to follow.
--- NOTE | 2019-01-11 14:27 | PDOC ---
PROGRESS NOTES Chief Complaint Chief Complaint acute abdominal pain improved obstipation, constipation obese, BMI 34 acute shingles, intractable perineal pain secondary to lesions due to her acute shingles attack. Plan; continue titrating pain management since pain due to her shingles is quite painful and patient would be unable to be discharged in the present continue very tearful during my encounter, reassurance provided. will order mag citrate titrate neurontin, will do morphine for pain reeval in the am History of Present Illness History of Present Illness quite distressed during my visit. Patient tearful at times. Patient denies fever, she does feel better after bowel movement. Vitals Vitals Vital Signs Date Time Temp Pulse Resp B/P (MAP) Pulse Ox O2 Delivery O2 Flow Rate FiO2 01/11/19 14:04 95 Room Air 01/11/19 07:00 97.7 67 18 108/73 (85) 97.7 Physical Exam General: Alert, Oriented X3, Cooperative, moderate distress Abdomen: Soft (tender, distended, hypoactive sounds) Extremities: No edema, Normal pulses Skin: No significant lesion Assessment and Plan Assessmemt and Plan Problems Medical Problems: (1) Abdominal pain Status: Acute (2) Constipation Status: Acute (3) Shingles rash Status: Acute Comment Review of Relevant I have reviewed the following items esau (where applicable) has been applied. Labs Microbiology 01/09/19 Urine Culture - Final, Complete 01/09/19 Urine Culture Result 1 (BARAK) - Final, Complete Medications Current Medications Methylnaltrexone Clio (Relistor) 12 mg 1X ONCE SQ Last administered on 01/09/19at 13:06; Start 01/09/19 at 12:45; Stop 01/09/19 at 12:46; Status DC Iohexol (Omnipaque 300 Mg/ml) 75 ml 1X ONCE IV Last administered on 01/09/19at 12:45; Start 01/09/19 at 12:45; Stop 01/09/19 at 12:46; Status DC Iohexol (Omnipaque 240 Mg/ml) 50 ml 1X ONCE PO Last administered on 01/09/19at 12:45; Start 01/09/19 at 12:45; Stop 01/09/19 at 12:46; Status DC Ondansetron HCl (Zofran) 8 mg 1X ONCE IV Last administered on 01/09/19at 13:05; Start 01/09/19 at 13:00; Stop 01/09/19 at 13:01; Status DC Lactulose (Lactulose) 20 gm ONCE STAT PO Last administered on 01/09/19at 15:19; Start 01/09/19 at 14:42; Stop 01/09/19 at 14:50; Status DC Ondansetron HCl (Zofran) 4 mg PRN Q8HRS PRN IV NAUSEA/VOMITING; Start 01/09/19 at 18:30; Stop 01/10/19 at 18:29; Status DC Sodium Chloride 1,000 ml @ 75 mls/hr [id number] IV Last administered on 01/10/19at 00:35; Start 01/09/19 at 18:29; Stop 01/10/19 at 18:28; Status DC Polyethylene Glycol (miraLAX Powder BULK BOTTLE) 238 gm 1X ONCE PO ; Start 01/09/19 at 20:00; Stop 01/09/19 at 20:01; Status UNV Dicyclomine HCl (Bentyl) 10 mg TID PO Last administered on 01/11/19 14:02; Start 01/09/19 at 21:00 Hyoscyamine (Anaspaz) 0.125 mg PRN Q4HRS PRN PO STOMACH CRAMPING; Start 01/09/19 at 20:00 Sucralfate (Carafate) 1 gm BID PO Last administered on 01/10/19at 20:56; Start 01/09/19 at 21:00 Pantoprazole Sodium (Protonix) 40 mg BIDAC PO Last administered on 01/11/19 05:37; Start 01/09/19 at 20:00 Valacyclovir HCl (Valtrex) 1,000 mg TID PO Last administered on 01/11/19 14:02; Start 01/09/19 at 21:00 Polyethylene Glycol (miraLAX PACKET) 17 gm TID PO Last administered on 01/10/19at 08:11; Start 01/09/19 at 21:00; Stop 01/10/19 at 13:33; Status DC Docusate Sodium (Colace) 100 mg DAILY PO Last administered on 01/11/19 08:59; Start 01/10/19 at 09:00 Senna/Docusate Sodium (Senna Plus) 2 tab PRN BID PRN PO CONSTIPATION; Start 01/09/19 at 20:15 Oxycodone/ Acetaminophen (Percocet 5/325) 1 tab PRN Q4HRS PRN PO SEVERE PAIN Last administered on 01/11/19 05:37; Start 01/10/19 at 00:30; Stop 01/11/19 at 09:14; Status DC Docusate Sodium (Colace) 100 mg DAILY PO ; Start 01/10/19 at 13:00; Stop 01/10/19 at 13:21; Status DC Polyethylene Glycol (miraLAX PACKET) 17 gm DAILY PO ; Start 01/10/19 at 13:00; Stop 01/10/19 at 13:21; Status DC Gabapentin (Neurontin) 100 mg TID PO Last administered on 01/11/19 08:59; Start 01/10/19 at 14:00; Stop 01/11/19 at 09:14; Status DC Ketorolac Tromethamine (Toradol 30mg Vial) 30 mg PRN Q6HRS PRN IV MODERATE PAIN Last administered on 01/11/19at 05:36; Start 01/10/19 at 13:30; Stop 01/11/19 at 09:14; Status DC Polyethylene Glycol (miraLAX PACKET) 17 gm BID PO Last administered on 01/11/19at 08:59; Start 01/10/19 at 21:00 Ceftriaxone Sodium (Rocephin) 1 gm 1X ONCE IVP Last administered on 01/10/19at 20:56; Start 01/10/19 at 21:00; Stop 01/10/19 at 21:01; Status DC Gabapentin (Neurontin) 300 mg TID PO Last administered on 01/11/19at 14:02; Start 01/11/19 at 10:00 Morphine Sulfate (Morphine Sulfate) 4 mg PRN Q2HR PRN IV MODERATE TO SEVERE PAIN Last administered on 01/11/19at 14:04; Start 01/11/19 at 09:15 Capsaicin (Zostrix) 1 terrie TID TP Last administered on 01/11/19 09:56; Start 01/11/19 at 10:00; Stop 01/11/19 at 12:19; Status DC Active Scripts Active [Pantoprazole] 40 MG Tablet.dr 40 Mg PO BID 2 weeks BID, then daily Carafate (Sucralfate) 1 Gm Tablet 1 Gm PO BID Anaspaz (Hyoscyamine Sulfate) 0.125 Mg Tab.rapdis 0.125 Mg PO PRN Q4HRS PRN Dicyclomine Hcl 10 Mg Capsule 10 Mg PO TID Zofran (Ondansetron Hcl) 4 Mg Tablet 1 Tab PO Q6HRS Vitals/I & O Vital Sign - Last 24 Hours 01/10/19 01/10/19 01/10/19 01/10/19 15:00 15:18 16:04 19:00 Temp 97.8 97.8 97.8 97.8 Pulse 72 85 Resp 18 16 B/P (MAP) 105/63 (77) 129/76 (93) Pulse Ox 94 92 92 95 O2 Delivery Room Air Room Air Room Air 01/10/19 01/10/19 01/11/19 01/11/19 20:00 23:00 03:00 05:37 Temp 97.7 97.7 Pulse 76 67 Resp 16 16 18 B/P (MAP) 100/46 (64) 114/68 (83) Pulse Ox 96 95 O2 Delivery Room Air Room Air Room Air Room Air 01/11/19 01/11/19 01/11/19 01/11/19 06:37 07:00 08:00 09:56 Temp 97.7 97.7 Pulse 67 Resp 18 18 B/P (MAP) 108/73 (85) O2 Delivery Room Air Room Air Room Air Room Air 01/11/19 01/11/19 10:30 14:04 Pulse Ox 95 O2 Delivery Room Air Room Air Intake and Output 01/10/19 01/10/19 01/11/19 15:00 23:00 07:00 Intake Total 520 ml 300 ml Balance 520 ml 300 ml SUNNY SAHA MD January 11, 2019 14:26
[2019-01-11] MEDS ORDERED: MAGNESIUM CITRATE 296 ML SOLUTION. PO ONE (14:30)
[2019-01-11 15:24] VITALS: BP 120/73
--- NOTE | 2019-01-11 15:30 | NUR ---
Finished transfusing first unit of blood at 1330, oral temp 101.2 at time transfusion was completed. During 1500 routine VS checks, IT IN[employer]URE [employer]IST reported the following: T 103.0, HR 120, RR 20, BP 126/69, SaO2 90% on RA. Pt reports feeling cold, having chills. Dr Susy garza, transfusion reaction workup initiated, orders received for imaging and lab work as well as for Zosyn. Dr Jain also requested for the next unit to be given once temperature is below 100.0 and for Pt to be premedicated with 1 Gram acetaminophen, 25 mg Benadryl IVP and 40 mg Solumedrol IVP. Addendum: 01/11/19 at 1741 by EVA ARANDA RN PLEASE DISREGARD NOTE, IT WAS ENTERED ON THE WRONG PATIENT.
--- NOTE | 2019-01-11 16:32 | RAD ---
MEE, 01/11/2019: HISTORY: Possible small bowel obstruction There is residual contrast material in the colon from a recent CT study. There is gas scattered throughout the colon in a nonspecific pattern. No small bowel dilatation is evident. The stomach is moderately distended with gas. There is also suggestion of distention of the urinary bladder. IMPRESSION: 1. Moderate gaseous distention of the stomach. 2. Probable bladder distention. Electronically signed by: Santhosh Gifford MD (01/11/2019 4:29 PM) [facility]
[2019-01-11 19:15] VITALS: BP 104/59
[2019-01-11 23:26] VITALS: BP 94/54
[2019-01-12] MEDS: MORPHINE SULFATE 4 MG/ML VIAL. IV PRN ×2 (02:18→06:58)
[2019-01-12 03:23] VITALS: BP 108/69
[2019-01-12] MEDS: PANTOPRAZOLE 40 MG TABLET.DR. PO SCH (06:58)
[2019-01-12 07:00] VITALS: BP 109/68
[2019-01-12] MEDS: SUCRALFATE 1 GM TABLET. PO SCH (08:49)
[2019-01-12] MEDS: GABAPENTIN 300 MG CAPSULE. PO SCH (08:49)
[2019-01-12] MEDS: POLYETHYLENE GLYCOL 3350 17 GM PACKET. PO SCH (08:49)
[2019-01-12] MEDS: DOCUSATE SODIUM 100 MG CAPSULE. PO SCH (08:49)
[2019-01-12] MEDS: DICYCLOMINE HCL 10 MG CAPSULE PO SCH (08:49)
[2019-01-12] MEDS: valACYclovir 500 MG TABLET. PO SCH (08:49)
[2019-01-12 11:00] VITALS: BP 119/78
[2019-01-12] MEDS ORDERED: VALA500T PO (11:01)
[2019-01-12] MEDS ORDERED: GABA300C18 PO (11:01)
[2019-01-12] MEDS ORDERED: MORP15TA PO (11:01)
--- NOTE | 2019-01-12 11:17 | NUR ---
SW following. Discussed with RN, pt is discharging home today. RN advised no SW needs.
--- NOTE | 2019-01-12 11:29 | PDOC3 ---
Discharge Summary Visit Information Date of Admission: January 09, 2019 Date of Discharge: January 12, 2019 Admitting Diagnosis Comment: acute abdominal pain obstipation, constipation relistor, lactulose, miralax, enema, may repeat admit obs obese, BMI 34 acute shingles, bladder spasm hx Final Diagnosis Problems Medical Problems: (1) Abdominal pain resolved Status: Acute (2) Constipation resolved Status: Acute (3) Shingles rash with intractable perineal pain, improved Status: Acute Brief Hospital Course Allergies Allergies Coded Allergies Type Severity Reaction Last Updated Verified latex Allergy Intermediate rash 11/30/17 Yes Vital Signs Vital Signs Date Time Temp Pulse Resp B/P (MAP) Pulse Ox O2 Delivery O2 Flow Rate FiO2 01/12/19 08:00 Room Air 01/12/19 07:32 16 01/12/19 07:00 98.3 72 109/68 (82) 97 98.3 Brief Hospital Course Ms. Toro is a 68 year old female admit w. acute bdominal pain, distention, she has no bowel movement over 5 days, started norco for shingles pain last week, and not stayed ahead with with stool softeners, she took 2 today. no BM for days, new shingles diagnosis, buttock area, otherwise usually healthy, Patient unfortunately had trouble with her bowel movements and with her recent bout of shingles she was started on retroviral medications noted to address the issue. The patient finally had bowel movements that were quite loose secondary to her having magnesium titrate Colace prune juice among the bowel regimen that she was placed on. The patient also had Relistor as well as part of the regimen. She was given gabapentin for her discomfort which seemed to alleviate her situation. Signs and symptoms of alarm were discussed prior to discharge. General recommendations regarding care for the perineal area were given to the patient including utilizing baby wipes witch ghassan and noted to soothe the area. She was in good spirits to be dismissed home. She is excuse from work until Tuesday and 2018 Physical exam Lungs clear to auscultation bilaterally with good inspiratory effort Vascular S1-S2 regular rhythm no murmurs calls or rubs Skin with multiple lesions in the perineal area erythematous different stages of healing no impetigo noted improved compared to admission Discharge Information Condition at Discharge: Improved Follow Up: Weeks Disposition/Orders: D/C to Home Scheduled Dicyclomine Hcl (Dicyclomine Hcl) 10 Mg Capsule, 10 MG PO TID, #90 Prescribed by: RIC BLANCO on 12/01/17755 Last Action: Continued on 01/09/191950 by RIC BLANCO Gabapentin (Gabapentin) 300 Mg Capsule, 300 MG PO TID for neuropaty for 30 Days, #90 Prescribed by: SUNNY SAHA MD on 01/12/19 1101 Morphine Sulfate (Morphine Sulfate) 15 Mg Tablet, 1 TAB PO QID for severe pain for 5 Days, #20 Prescribed by: SUNNY SAHA MD on 01/12/19 1101 Ondansetron Hcl (Zofran) 4 Mg Tablet, 1 TAB PO Q6HRS, #10 Ref 0 Prescribed by: HÉCTOR HARDEN on 11/28/17 115 Last Action: HELD on 01/09/191950 by RIC BLANCO Sucralfate (Carafate) 1 Gm Tablet, 1 GM PO BID, #60 Ref 1 Prescribed by: RIC BLANCO on 12/01/17755 Last Action: Converted on 01/09/191950 by RIC BLANCO Valacyclovir Hcl (Valacyclovir) 500 Mg Tablet, 1,000 MG PO TID for shingles for 7 Days, #42 Prescribed by: SUNNY SAHA MD on 01/12/19 1101 [Pantoprazole] 40 MG TABLET.DR, 40 MG PO BID, #60 Ref 1 2 weeks BID, then daily Prescribed by: RIC BLANCO on 12/01/17755 Last Action: Converted on 01/09/191950 by RIC BLANCO Scheduled PRN Hyoscyamine Sulfate (Anaspaz) 0.125 Mg Tab.rapdis, 0.125 MG PO PRN Q4HRS PRN for STOMACH CRAMPING, #40 Prescribed by: RIC BLANCO on 12/01/17755 Last Action: Continued on 01/09/191950 by SUNNY DIXON MD January 12, 2019 11:29
--- NOTE | 2019-01-12 11:40 | NUR ---
Discharge instructions and belongings reviewed with patient, verbalized understanding. Patient was escorted out of hospital via ambulation by Sadaf BROCK.
== END 2019-01-12 12:07 | disposition home or self-care (01) | DRG 866 ==
LOC: ER 11:51 → 4 NORTH 18:23 → OBSVTOIN 01-10 15:22
PROVIDERS: ADMIT Internal Medicine; ATTEND Internal Medicine
DX: B02.8 Zoster with other complications (principal); E66.9 Obesity, unspecified; F31.9 Bipolar disorder, unspecified; J45.909 Unspecified asthma, uncomplicated; K59.00 Constipation, unspecified; N32.89 Other specified disorders of bladder; Z90.49 Acquired absence of other specified parts of digestive tract; Z79.899 Other long term (current) drug therapy; Z68.35 Body mass index [BMI] 35.0-35.9, adult; Z91.040 Latex allergy status
CPT/HCPCS: 36415; 74018; 74177; 80053; 81001; 83690; 85025; 85610; 85730; 87086; 96374; G0378; G0379; J0696; J1885; J2212; J2270; J2405; J7030; Q9966; Q9967; 99285-25

== ENCOUNTER 2019-01-20 12:23 | Emergency (ER) | payer BC, MEDICARE ==
[~2019-01-20] VITALS: Ht 157.5 cm; Wt 88.5 kg
[~2019-01-20 12:23] MED LIST changes: +GABA300C18 PO; +MORP15TA PO; +VALA500T PO
[2019-01-20] MEDS ORDERED: MORPHINE SULFATE 4 MG/ML VIAL. IV ONE (13:15)
[2019-01-20] MEDS ORDERED: predniSONE 10 MG TABLET PO ONE (13:15)
[2019-01-20] MEDS ORDERED: HYDR-3164 PO (14:33)
[2019-01-20] MEDS ORDERED: PRED50TA PO (14:33)
--- NOTE | 2019-01-20 14:33 | PHYS DOC ---
Past Medical History Past Medical History: Asthma, Bipolar Additional Past Medical Histor: SHINGLES Past Surgical History: Tonsillectomy Additional Past Surgical Histo: RIGHT FOOT SX Alcohol Use: None Drug Use: None Adult General Chief Complaint Chief Complaint: SHINGLES HPI HPI Patient is a 69 year old [f__sex] who presents with [] Review of Systems Review of Systems Constitutional: Denies fever or chills [] Eyes: Denies change in visual acuity, redness, or eye pain [] HENT: Denies nasal congestion or sore throat [] Respiratory: Denies cough or shortness of breath [] Cardiovascular: No additional information not addressed in HPI [] GI: Denies abdominal pain, nausea, vomiting, bloody stools or diarrhea [] : Denies dysuria or hematuria [] Musculoskeletal: Denies back pain or joint pain [] Integument: Denies rash or skin lesions [] Neurologic: Denies headache, focal weakness or sensory changes [] Endocrine: Denies polyuria or polydipsia [] All other systems were reviewed and found to be within normal limits, except as documented in this note. Current Medications Current Medications Current Medications Medications (Trade) Dose Ordered Sig/Mervin Start Time Stop Time Status Last Admin Dose Admin Morphine Sulfate (Morphine Sulfate) 4 mg 1X ONCE 01/20/19 13:15 01/20/19 13:16 DC 01/20/19 13:28 4 MG Prednisone (Prednisone) 50 mg 1X ONCE 01/20/19 13:15 01/20/19 13:16 DC 01/20/19 13:27 50 MG Allergies Allergies Allergies Coded Allergies Type Severity Reaction Last Updated Verified latex Allergy Intermediate rash 11/30/17 Yes Physical Exam Physical Exam Constitutional: Well developed, well nourished, no acute distress, non-toxic appearance. [] HENT: Normocephalic, atraumatic, bilateral external ears normal, oropharynx moist, no oral exudates, nose normal. [] Eyes: PERRLA, EOMI, conjunctiva normal, no discharge. [] Neck: Normal range of motion, no tenderness, supple, no stridor. [] Cardiovascular:Heart rate regular rhythm, no murmur [] Lungs & Thorax: Bilateral breath sounds clear to auscultation [] Abdomen: Bowel sounds normal, soft, no tenderness, no masses, no pulsatile masses. [] Skin: Warm, dry, no erythema, no rash. [] Back: No tenderness, no CVA tenderness. [] Extremities: No tenderness, no cyanosis, no clubbing, ROM intact, no edema. [] Neurologic: Alert and oriented X 3, normal motor function, normal sensory function, no focal deficits noted. [] Psychologic: Affect normal, judgement normal, mood normal. [] Current Patient Data Vital Signs Vital Signs Date Time Temp Pulse Resp B/P (MAP) Pulse Ox O2 Delivery O2 Flow Rate FiO2 01/20/19 14:23 77 18 118/66 (83) 97 Room Air 01/20/19 12:30 97.6 97.6 EKG EKG [] Radiology/Procedures Radiology/Procedures [] Course & Med Decision Making Course & Med Decision Making 1410: On reevaluation patient reports she has had improvement in pain following dose of oral prednisone and IV morphine. In-depth conversation had with patient and her regarding ongoing pain with shingles. Discussed plans for patient to stop taking the gabapentin as a prednisone prescription will be provided. Patient reported she had minimal relief she feels with the gabapentin. Patient will be provided with small quantity of Burna tablets and advised further prescriptions would need to be filled by primary care physician. Patient advised on keeping wounds dry and clean. Patient had denied any abdominal pain or nausea. She reports she has been able to eat and drink without issues. Patient advised on less use of stool softeners and suppositories to slow the diarrhea. At time of discussion patient is in no visible distress remains nontoxic in appearance.Education provided on signs and symptoms to return to ER. Discharge instructions were discussed. Patient to follow-up with primary care physician if symptoms persist or with any concerns-will provide patient with physician resource sheet for follow-up purposes. [] Dragon Disclaimer Dragon Disclaimer This electronic medical record was generated, in whole or in part, using a voice recognition dictation system. Departure Departure Impression: Primary Impression: Shingles Disposition: 01 HOME, SELF-CARE Condition: STABLE Referrals: JULIA GEORGE (PCP) Patient Instructions: Shingles Additional Instructions: As discussed you should establish a primary care physician for further ev aluation and care. Plenty of fluids and eat well-balanced meals daily. If you continue to have diarrhea take less of the stool softeners and avoid suppositories. Continue your valacyclovir as prescribed. Scripts Hydrocodone/Apap 5-325 (NORCO 5-325 TABLET) 1 Each Tablet 1 TAB PO PRN Q6HRS PRN for PAIN, #10 TAB 0 Refills Avoid driving or drinking alcohol while taking this medication Prov: PINO HAM APRN 01/20/19 Prednisone (PREDNISONE) 50 Mg Tablet 1 TAB PO DAILY, #5 TAB 0 Refills Start 01/21/19 Prov: PINO HAM APRN 01/20/19 PINO HAM APRN Jan 20, 2019 14:33
[2019-01-20 14:37] VITALS: BP 145/81
== END 2019-01-20 14:37 | disposition home or self-care (01) ==
LOC: ER 12:23
DX: B02.9 Zoster without complications (principal); J45.909 Unspecified asthma, uncomplicated; F31.9 Bipolar disorder, unspecified; Z90.89 Acquired absence of other organs; Z91.040 Latex allergy status
CPT/HCPCS: 96374; 99284; J2270; J7512

== ENCOUNTER 2019-05-23 10:23 | Inpatient (IN) | payer BC, MEDICARE ==
[~2019-05-23] VITALS: Ht 160 cm; Wt 88.9 kg
[~2019-05-23 10:23] MED LIST changes: +HYDR-3164 PO; +PRED50TA PO
[2019-05-23] MEDS ORDERED: IV NORMAL SALINE 1000ML BAG 1,000 ML IV SCH (10:37)
[2019-05-23 10:45] LABS: BASO % 0 % (0-3); EOS % 0 % (0-3); HEMATOCRIT 44.6 % (36.0-47.0); LYMPH % 6 % (24-48); MEAN CORPUSCULAR HEMOGLOBIN 31 pg (25-35); MEAN CORPUSCULAR HGB CONC 34 g/dL (31-37); MEAN CORPUSCULAR VOLUME 92 fL (79-100); MONO # 0.6 x10^3/uL (0.0-1.1); MONO % 4 % (0-9); NEUT # 15.1 x10^3/uL (1.8-7.7); NEUT % 90 % (31-73); PLATELET COUNT 382 x10^3/uL (140-400); RED BLOOD COUNT 4.84 x10^6/uL (3.50-5.40); RED CELL DISTRIBUTION WIDTH 13.1 % (11.5-14.5); WHITE BLOOD COUNT 16.7 x10^3/uL (4.0-11.0)
[2019-05-23] MEDS ORDERED: diphenhydrAMINE 50 MG/ML VIAL IV ONE (10:45)
[2019-05-23] MEDS ORDERED: methylPREDNISolone SOD SUCC PF 125 MG/2 ML VIAL. IV ONE (10:45)
[2019-05-23] MEDS ORDERED: FAMOTIDINE 20 MG/2 ML VIAL IVP ONE (10:45)
--- NOTE | 2019-05-23 10:47 | PHYS DOC ---
Past Medical History Past Medical History: Asthma, Bipolar Additional Past Medical Histor: SHINGLES Past Surgical History: Tonsillectomy Additional Past Surgical Histo: RIGHT FOOT SX Alcohol Use: None Drug Use: None Adult General Chief Complaint Chief Complaint: ALLERGIC REACTION HPI HPI Patient is a 69 year old female who presents with complaining of rash. Patient states she woke up at 3 AM yesterday because pruritic rash in upper part of her abdomen that gradually became worse and more extensive and seen at the urgent care and treated with injection of street medication and discharged home with Medrol Dosepak and [id number] Benadryl without improvement of her condition. Patient denies shortness of breath, cough, throat swelling, nausea and vomiting, fever and chills, chest pain, history of allergic reaction, starting new medication or food. Patient taking gabapentin and dicyclomine since December after complicated shingles without problem. Review of Systems Review of Systems Constitutional: Denies fever or chills [] Eyes: Denies change in visual acuity, redness, or eye pain [] HENT: Denies nasal congestion or sore throat [] Respiratory: Denies cough or shortness of breath [] Cardiovascular: No additional information not addressed in HPI [] GI: Denies abdominal pain, nausea, vomiting, bloody stools or diarrhea [] : Denies dysuria or hematuria [] Musculoskeletal: Denies back pain or joint pain [] Integument: Reports rash Neurologic: Denies headache, focal weakness or sensory changes [] Endocrine: Denies polyuria or polydipsia [] All other systems were reviewed and found to be within normal limits, except as documented in this note. Current Medications Current Medications Current Medications Medications (Trade) Dose Ordered Sig/Mervin Start Time Stop Time Status Last Admin Dose Admin Diphenhydramine HCl (Benadryl) 50 mg 1X ONCE 05/23/19 10:45 05/23/19 10:46 DC 05/23/19 10:43 50 MG Famotidine (Pepcid Vial) 20 mg 1X ONCE 05/23/19 10:45 05/23/19 10:46 DC 05/23/19 10:44 20 MG Methylprednisolone Sodium Succinate (SOLU-Medrol 125MG VIAL) 125 mg 1X ONCE 05/23/19 10:45 05/23/19 10:46 DC 05/23/19 10:43 125 MG Sodium Chloride 1,000 ml @ 1,000 mls/hr Q1H 05/23/19 10:37 05/23/19 11:36 DC 05/23/19 10:43 1,000 MLS/HR Allergies Allergies Allergies Coded Allergies Type Severity Reaction Last Updated Verified latex Allergy Intermediate rash 11/30/17 Yes Physical Exam Physical Exam Constitutional: Well developed, well nourished, mild distress, non-toxic appearance. [] HENT: Normocephalic, atraumatic, no lip, tongue, uvula edema. Eyes: PERRLA, EOMI, conjunctiva normal, no discharge. [] Neck: Normal range of motion, no tenderness, supple, no stridor. [] Cardiovascular:Heart rate regular rhythm, no murmur [] Lungs & Thorax: Bilateral breath sounds clear to auscultation [] Skin: Warm, dry, and generalized maculopapular rash on face, neck, scalp, trunk and abdomen and extremities Back: No tenderness, no CVA tenderness. [] Extremities: No tenderness, no cyanosis, no clubbing, ROM intact, no edema. [] Neurologic: Alert and oriented X 3, no focal deficits noted. [] Psychologic: Affect anxious, judgement normal, mood normal. [] Current Patient Data Vital Signs Vital Signs Date Time Temp Pulse Resp B/P (MAP) Pulse Ox O2 Delivery O2 Flow Rate FiO2 05/23/19 12:00 67 16 138/74 (95) 94 Room Air 05/23/19 10:31 97.7 97.7 Lab Values Laboratory Tests Test 05/23/19 10:35 White Blood Count 16.7 x10^3/uL (4.0-11.0) H Red Blood Count 4.84 x10^6/uL (3.50-5.40) Hemoglobin 15.0 g/dL (12.0-15.5) Hematocrit 44.6 % (36.0-47.0) Mean Corpuscular Volume 92 fL (79-100) Mean Corpuscular Hemoglobin 31 pg (25-35) Mean Corpuscular Hemoglobin Concent 34 g/dL (31-37) Red Cell Distribution Width 13.1 % (11.5-14.5) Platelet Count 382 x10^3/uL (140-400) Neutrophils (%) (Auto) 90 % (31-73) H Lymphocytes (%) (Auto) 6 % (24-48) L Monocytes (%) (Auto) 4 % (0-9) Eosinophils (%) (Auto) 0 % (0-3) Basophils (%) (Auto) 0 % (0-3) Neutrophils # (Auto) 15.1 x10^3/uL (1.8-7.7) H Lymphocytes # (Auto) 1.0 x10^3/uL (1.0-4.8) Monocytes # (Auto) 0.6 x10^3/uL (0.0-1.1) Eosinophils # (Auto) 0.0 x10^3/uL (0.0-0.7) Basophils # (Auto) 0.0 x10^3/uL (0.0-0.2) Segmented Neutrophils % 83 % (35-66) H Band Neutrophils % 2 % (0-9) Lymphocytes % 15 % (24-48) L Platelet Estimate Adequate (ADEQUATE) Sodium Level 143 mmol/L (136-145) Potassium Level 4.2 mmol/L (3.5-5.1) Chloride Level 106 mmol/L (98-107) Carbon Dioxide Level 28 mmol/L (21-32) Anion Gap 9 (6-14) Blood Urea Nitrogen 14 mg/dL (7-20) Creatinine 0.9 mg/dL (0.6-1.0) Estimated GFR (Cockcroft-Gault) 62.5 BUN/Creatinine Ratio 16 (6-20) Glucose Level 135 mg/dL (70-99) H Lactic Acid Level 2.4 mmol/L (0.4-2.0) H Calcium Level 9.9 mg/dL (8.5-10.1) Total Bilirubin 0.4 mg/dL (0.2-1.0) Aspartate Amino Transferase (AST) 20 U/L (15-37) Alanine Aminotransferase (ALT) 39 U/L (14-59) Alkaline Phosphatase 82 U/L (46-116) Total Protein 7.7 g/dL (6.4-8.2) Albumin 3.9 g/dL (3.4-5.0) Albumin/Globulin Ratio 1.0 (1.0-1.7) Laboratory Tests 05/23/19 10:35 Laboratory Tests 05/23/19 10:35 EKG EKG [] Radiology/Procedures Radiology/Procedures [] Course & Med Decision Making Course & Med Decision Making Pertinent Labs reviewed. (See chart for details) Evolution of patient in ER showed 69-year-old female patient with complaining of allergic reaction that getting better with outpatient treatment. Patient treated with IV fluid, Benadryl, Pepcid, Solu-Medrol with partial improvement of itching that patient seems very uncomfortable. Lactic acid was 2.4 and patient treated with IV fluids and 1 dose of antibiotic was given. Plan to admit patient with diagnosis of allergic reaction and elevated lactic acid.Patient requiring admission for further evaluation and treatment. Discussed with Dr. Barrios who is in agreement with admission. Discussed findings and plan with patient and family, who acknowledge understanding and agreement. Dragon Disclaimer Dragon Disclaimer This electronic medical record was generated, in whole or in part, using a voice recognition dictation system. Departure Departure Impression: Primary Impression: Allergic reaction Additional Impressions: Lactic acid blood increased Anxiety Disposition: 09 ADMITTED INPATIENT (at 1220) Admitting Physician: HILDA (Dr Barrios accepted admission at 1219) Condition: IMPROVED Referrals: JULIA GEORGE (PCP) Date and Time of Reassessment Date: May 23, 2019 Time: 12:30 Fluid Challenge Is the fluid challenge complet: Yes IBW Target Volume Used: Yes BMI > 30: Yes Vital Signs Vital Signs: Vital Signs Date Time Temp Pulse Resp B/P (MAP) Pulse Ox O2 Delivery O2 Flow Rate FiO2 05/23/19 12:00 67 16 138/74 (95) 94 Room Air 05/23/19 10:31 97.7 97.7 Temperature Source: Oral Respirations Respiratory Pattern: Normal Cardiovascular Pulse Rhythm: Regular Heart: Nml rate, reg. rhythm Lung Sounds Breath Sounds: Clear Capillary Refil Capillary Refill: Rt Hand < 3 seconds Peripheral Pulse Pulse Location: Radial Pulse Strength: Normal (2+) Pulse Assessment Method: NIBP Integumentary Skin Moisture: Dry Problem Qualifiers Primary Impression: Allergic reaction Encounter type: initial encounter Qualified Codes: T78.40XA - Allergy, unspecified, initial encounter GAY PRIETO MD May 23, 2019 10:47
[2019-05-23 10:53] LABS: CALCIUM 9.9 mg/dL (8.5-10.1); CREATININE 0.9 mg/dL (0.6-1.0); GFR 62.5; POTASSIUM 4.2 mmol/L (3.5-5.1)
[2019-05-23 10:59] LABS: ALBUMIN 3.9 g/dL (3.4-5.0); TOTAL BILIRUBIN 0.4 mg/dL (0.2-1.0); TOTAL PROTEIN 7.7 g/dL (6.4-8.2)
[2019-05-23 11:23] LABS: % BANDS 2 % (0-9); % LYMPHS 15 % (24-48); % SEGS 83 % (35-66); PLT ESTIMATE ADEQUATE (ADEQUATE)
[2019-05-23] MEDS ORDERED: hydrOXYzine 25 MG TABLET PO STA (12:12)
[2019-05-23] MEDS ORDERED: IV NORMAL SALINE 1000ML BAG 1,000 ML IV ONE (12:15)
[2019-05-23] MEDS ORDERED: cefTRIAXone IV Push 1 GM VIAL. IVP ONE (12:15)
[2019-05-23] MEDS ORDERED: cloNIDine HCL 0.1 MG TABLET PO PRN (12:30)
[2019-05-23] MEDS ORDERED: HYOSCYAMINE 0.125 MG TAB.RAPDIS PO PRN (12:30)
[2019-05-23] MEDS ORDERED: diphenhydrAMINE HCL 25 MG CAPSULE PO PRN (12:30)
[2019-05-23] MEDS ORDERED: ZOLPIDEM 5 MG TABLET. PO PRN (12:30)
--- NOTE | 2019-05-23 12:39 | PDOC1 ---
History and Physical Date of Admission Date of Admission DATE: 05/23/19 TIME: 12:31 Identification/Chief Complaint Chief Complaint rash all over body, itchy Source Source: Caregiver, Chart review, Patient History of Present Illness History of Present Illness otherwise healthy 69 white female, only past medical is bipolar and asthma both of which are stable, 2 days ago woke up with itchy rash all over back, anetrior chest and is now moving down her thighs, She also has Rt buttock shngles since December s/p acyclovir and is now on gabapentin still for intermittent shoooting pains, the lesions are scabbing over, She only has allergy to latex where she becomes red as a beet She went to urgent care was given steroid shot and prophylactic rocephin for home but lesions are much worse, or more disseminated so came here, None of the lesions appear infected, she denies any culprits identifiable, she ate honey the day before - no new meds NEver happened before The lesions are maculopapular, some coalescing, pruritic, some are raised, non vesicular - not hives yet but seem to be forming into groups, No skin breaks Past Medical History Cardiovascular: No pertinent hx Pulmonary: Asthma GI: No pertinent hx Heme/Onc: No pertinent hx Hepatobiliary: No pertinent hx Psych: Bipolar Rheumatologic: No pertinent hx Infectious disease: No pertinent hx Past Surgical History Past Surgical History: No pertinent history Family History Family History: No Significant Social History Smoke: No ALCOHOL: rare Drugs: None Current Problem List Problem List Problems Medical Problems: (1) Allergic reaction Status: Acute (2) Anxiety Status: Acute (3) Lactic acid blood increased Status: Acute Current Medications Current Medications Current Medications Methylprednisolone Sodium Succinate (SOLU-Medrol 125MG VIAL) 125 mg 1X ONCE IV Last administered on 05/23/19at 10:43; Start 05/23/19 at 10:45; Stop 05/23/19 at 10:46; Status DC Diphenhydramine HCl (Benadryl) 50 mg 1X ONCE IV Last administered on 05/23/19at 10:43; Start 05/23/19 at 10:45; Stop 05/23/19 at 10:46; Status DC Famotidine (Pepcid Vial) 20 mg 1X ONCE IVP Last administered on 05/23/19at 10:44; Start 05/23/19 at 10:45; Stop 05/23/19 at 10:46; Status DC Sodium Chloride 1,000 ml @ 1,000 mls/hr Q1H IV Last administered on 05/23/19at 10:43; Start 05/23/19 at 10:37; Stop 05/23/19 at 11:36; Status DC Ceftriaxone Sodium (Rocephin) 1 gm 1X ONCE IVP ; Start 05/23/19 at 12:15; Stop 05/23/19 at 12:16; Status DC Sodium Chloride 1,000 ml @ 1,000 mls/hr 1X ONCE IV ; Start 05/23/19 at 12:15; Stop 05/23/19 at 13:14 Hydroxyzine HCl (Atarax) 50 mg 1X STAT PO ; Start 05/23/19 at 12:12; Stop 05/23/19 at 12:15; Status DC Dicyclomine HCl (Bentyl) 10 mg TID PO ; Start 05/23/19 at 14:00; Status UNV Gabapentin (Neurontin) 300 mg TID PO ; Start 05/23/19 at 14:00; Status UNV Acetaminophen/ Hydrocodone Bitart (Lortab 5/325) 1 tab PRN Q6HRS PRN PO PAIN; Start 05/23/19 at 12:30; Status UNV Hyoscyamine (Anaspaz) 0.125 mg PRN Q4HRS PRN PO STOMACH CRAMPING; Start 05/23/19 at 12:30; Status UNV Morphine Sulfate (Morphine Ir) 15 mg QID PO ; Start 05/23/19 at 13:00; Status UNV Sucralfate (Carafate) 1 gm BID PO ; Start 05/23/19 at 21:00; Status UNV Valacyclovir HCl (Valtrex) 1,000 mg TID PO ; Start 05/23/19 at 14:00; Status UNV Non-Formulary Medication (Ondansetron Hcl (Zofran)) 1 tab Q6HRS PO ; Start 05/23/19 at 18:00; Status UNV Non-Formulary Medication (Prednisone ) 1 tab DAILY PO ; Start 05/24/19 at 09:00; Status UNV Non-Formulary Medication ([Pantoprazole] ) 40 mg BID PO ; Start 05/23/19 at 21:00; Status UNV Zolpidem Tartrate (Ambien) 5 mg PRN QHS PRN PO INSOMNIA; Start 05/23/19 at 12:30; Status UNV Clonidine HCl (Catapres) 0.1 mg PRN Q1HR PRN PO HYPERTENSION; Start 05/23/19 at 12:30; Status UNV Diphenhydramine HCl (Benadryl) 25 mg PRN Q6HRS PRN PO ITCHING; Start 05/23/19 at 12:30; Status UNV Sodium Chloride 1,000 ml @ 125 mls/hr Q8H IV ; Start 05/23/19 at 12:22; Stop 05/24/19 at 12:21; Status UNV Methylprednisolone Sodium Succinate (SOLU-Medrol 40MG VIAL) 40 mg Q8HRS IV ; Start 05/23/19 at 14:00; Status UNV Diphenhydramine HCl (Benadryl) 25 mg QID IVP ; Start 05/23/19 at 13:00; Status UNV Active Scripts Active [place] 5-325 Tablet (Acetaminophen/Hydrocodone Bitart) 1 Each Tablet 1 Tab PO PRN Q6HRS PRN Avoid driving or drinking alcohol while taking this medication Prednisone 50 Mg Tablet 1 Tab PO DAILY Start 01/21/19 Morphine Sulfate 15 Mg Tablet 1 Tab PO QID 5 Days Gabapentin 300 Mg Capsule 300 Mg PO TID 30 Days Valacyclovir (Valacyclovir Hcl) 500 Mg Tablet 1,000 Mg PO TID 7 Days [Pantoprazole] 40 MG Tablet.dr 40 Mg PO BID 2 weeks BID, then daily Carafate (Sucralfate) 1 Gm Tablet 1 Gm PO BID Anaspaz (Hyoscyamine Sulfate) 0.125 Mg Tab.rapdis 0.125 Mg PO PRN Q4HRS PRN Dicyclomine Hcl 10 Mg Capsule 10 Mg PO TID Zofran (Ondansetron Hcl) 4 Mg Tablet 1 Tab PO Q6HRS Allergies Allergies: Coded Allergies: latex (Verified Allergy, Intermediate, rash, 11/30/17) ROS Review of System as per HPI, rest 14 pt neg Physical Exam General: Alert, Oriented X3, Cooperative, No acute distress HEENT: Atraumatic, PERRLA, EOMI Lungs: Clear to auscultation, Normal air movement Heart: S1S2, RRR, no thrills, no rubs, no gallops, no murmurs Cardiovascular: S1, S2 Breasts: Normal, Rt breast nml w/o mass, Lt breast nml w/o mass, Nipples normal Abdomen: Normal bowel sounds, Soft, No tenderness, No hepatosplenomegaly, No masses Rectal Exam: not examined PELVIC: Other (left scabbing over shingles left buttock, dry) Extremities: No clubbing, No cyanosis, No edema, Normal pulses, No tenderness/swelling Skin: Other (The lesions are maculopapular, some coalescing, pruritic, some are raised, non vesicular - not hives yet but seem to be forming into groups, No skin breaks) Neuro: Normal gait, Normal speech, Strength at 5/5 X4 ext, Normal tone, Sensation intact, Cranial nerves 3-12 NL, Reflexes 2+ Psych/Mental Status: Mental status NL, Mood NL Vitals Vitals Vital Signs Date Time Temp Pulse Resp B/P (MAP) Pulse Ox O2 Delivery O2 Flow Rate FiO2 05/23/19 12:00 67 16 138/74 (95) 94 Room Air 05/23/19 10:31 97.7 97.7 Labs Labs Laboratory Tests Test 05/23/19 10:35 White Blood Count 16.7 x10^3/uL (4.0-11.0) Red Blood Count 4.84 x10^6/uL (3.50-5.40) Hemoglobin 15.0 g/dL (12.0-15.5) Hematocrit 44.6 % (36.0-47.0) Mean Corpuscular Volume 92 fL (79-100) Mean Corpuscular Hemoglobin 31 pg (25-35) Mean Corpuscular Hemoglobin Concent 34 g/dL (31-37) Red Cell Distribution Width 13.1 % (11.5-14.5) Platelet Count 382 x10^3/uL (140-400) Neutrophils (%) (Auto) 90 % (31-73) Lymphocytes (%) (Auto) 6 % (24-48) Monocytes (%) (Auto) 4 % (0-9) Eosinophils (%) (Auto) 0 % (0-3) Basophils (%) (Auto) 0 % (0-3) Neutrophils # (Auto) 15.1 x10^3/uL (1.8-7.7) Lymphocytes # (Auto) 1.0 x10^3/uL (1.0-4.8) Monocytes # (Auto) 0.6 x10^3/uL (0.0-1.1) Eosinophils # (Auto) 0.0 x10^3/uL (0.0-0.7) Basophils # (Auto) 0.0 x10^3/uL (0.0-0.2) Segmented Neutrophils % 83 % (35-66) Band Neutrophils % 2 % (0-9) Lymphocytes % 15 % (24-48) Platelet Estimate Adequate (ADEQUATE) Sodium Level 143 mmol/L (136-145) Potassium Level 4.2 mmol/L (3.5-5.1) Chloride Level 106 mmol/L (98-107) Carbon Dioxide Level 28 mmol/L (21-32) Anion Gap 9 (6-14) Blood Urea Nitrogen 14 mg/dL (7-20) Creatinine 0.9 mg/dL (0.6-1.0) Estimated GFR (Cockcroft-Gault) 62.5 BUN/Creatinine Ratio 16 (6-20) Glucose Level 135 mg/dL (70-99) Lactic Acid Level 2.4 mmol/L (0.4-2.0) Calcium Level 9.9 mg/dL (8.5-10.1) Total Bilirubin 0.4 mg/dL (0.2-1.0) Aspartate Amino Transf (AST/SGOT) 20 U/L (15-37) Alanine Aminotransferase (ALT/SGPT) 39 U/L (14-59) Alkaline Phosphatase 82 U/L (46-116) Total Protein 7.7 g/dL (6.4-8.2) Albumin 3.9 g/dL (3.4-5.0) Albumin/Globulin Ratio 1.0 (1.0-1.7) Laboratory Tests Test 05/23/19 10:35 White Blood Count 16.7 x10^3/uL (4.0-11.0) Red Blood Count 4.84 x10^6/uL (3.50-5.40) Hemoglobin 15.0 g/dL (12.0-15.5) Hematocrit 44.6 % (36.0-47.0) Mean Corpuscular Volume 92 fL (79-100) Mean Corpuscular Hemoglobin 31 pg (25-35) Mean Corpuscular Hemoglobin Concent 34 g/dL (31-37) Red Cell Distribution Width 13.1 % (11.5-14.5) Platelet Count 382 x10^3/uL (140-400) Neutrophils (%) (Auto) 90 % (31-73) Lymphocytes (%) (Auto) 6 % (24-48) Monocytes (%) (Auto) 4 % (0-9) Eosinophils (%) (Auto) 0 % (0-3) Basophils (%) (Auto) 0 % (0-3) Neutrophils # (Auto) 15.1 x10^3/uL (1.8-7.7) Lymphocytes # (Auto) 1.0 x10^3/uL (1.0-4.8) Monocytes # (Auto) 0.6 x10^3/uL (0.0-1.1) Eosinophils # (Auto) 0.0 x10^3/uL (0.0-0.7) Basophils # (Auto) 0.0 x10^3/uL (0.0-0.2) Segmented Neutrophils % 83 % (35-66) Band Neutrophils % 2 % (0-9) Lymphocytes % 15 % (24-48) Platelet Estimate Adequate (ADEQUATE) Sodium Level 143 mmol/L (136-145) Potassium Level 4.2 mmol/L (3.5-5.1) Chloride Level 106 mmol/L (98-107) Carbon Dioxide Level 28 mmol/L (21-32) Anion Gap 9 (6-14) Blood Urea Nitrogen 14 mg/dL (7-20) Creatinine 0.9 mg/dL (0.6-1.0) Estimated GFR (Cockcroft-Gault) 62.5 BUN/Creatinine Ratio 16 (6-20) Glucose Level 135 mg/dL (70-99) Lactic Acid Level 2.4 mmol/L (0.4-2.0) Calcium Level 9.9 mg/dL (8.5-10.1) Total Bilirubin 0.4 mg/dL (0.2-1.0) Aspartate Amino Transf (AST/SGOT) 20 U/L (15-37) Alanine Aminotransferase (ALT/SGPT) 39 U/L (14-59) Alkaline Phosphatase 82 U/L (46-116) Total Protein 7.7 g/dL (6.4-8.2) Albumin 3.9 g/dL (3.4-5.0) Albumin/Globulin Ratio 1.0 (1.0-1.7) VTE Prophylaxis Ordered VTE Prophylaxis Devices: Yes VTE Pharmacological Prophylaxi: Yes Assessment/Plan Assessment/Plan Diffuse skin rash seems to be acute Allergic dermatitis - culprit seems to be unknown, usually 90% of the time unable to identify, acute onset which supports more of an allergic reaction than infectious one - benadryl , steroid, hold off any abx for now, no derm consult available, should get better with above treatment if not, will consider other consults LEft buttock HZV (shingles)- i continued acyvlovir on file though she claims she was not on it - to reduce chance of flaring up since sometimes it does with acute stress/illness, cont gabapentin prn as her home regimen Bipolar, asthma stable- PLAn: WIll only meet OBS criteria but might take more than 2 days to recover FULL CODE plan as above med surg floor ok Seen at [facility] MD May 23, 2019 12:39
[2019-05-23] MEDS ORDERED: predniSONE 10 MG TABLET PO SCH (13:00)
[2019-05-23] MEDS: diphenhydrAMINE 50 MG/ML VIAL IVP SCH ×3 (13:00→21:32)
[2019-05-23] MEDS: IV NORMAL SALINE 1000ML BAG 1,000 ML IV SCH ×2 (13:52→21:45)
[2019-05-23] MEDS: methylPREDNISolone SOD SUCC PF 40 MG/ML VIAL. IV SCH ×2 (14:00→21:29)
[2019-05-23] MEDS: DICYCLOMINE HCL 10 MG CAPSULE PO SCH ×2 (14:25→21:30)
[2019-05-23] MEDS: ONDANSETRON ODT 4 MG TAB.RAPDIS. PO SCH ×2 (14:25→18:00)
--- NOTE | 2019-05-23 15:13 | NUR ---
Wound Care: Consult to eval and treat for shingles lesions to L buttock. Diffuse red rash to entire body. No open areas noted on head to toe inspection. Pt c/o pain radiating from L hip to anus, with no definitive openings or crusting noted. Educated on prevention of skin breakdown. Discussed POC with Pierre HUTCHISON, cancel wound consult d/t no open wounds. Recommend calamine lotion PRN for skin irritation if benadryl is not entirely effective.
[2019-05-23 15:30] VITALS: BP 127/69
[2019-05-23] MEDS: SUCRALFATE 1 GM TABLET. PO SCH (16:52)
[2019-05-23] MEDS: GABAPENTIN 300 MG CAPSULE. PO SCH ×2 (16:52→21:30)
[2019-05-23] MEDS: PANTOPRAZOLE 40 MG TABLET.DR. PO SCH (16:52)
[2019-05-23] MEDS: valACYclovir 500 MG TABLET. PO SCH ×2 (16:53→21:29)
[2019-05-23] MEDS: MORPHINE IR 15 MG TABLET PO SCH ×3 (16:53→21:32)
[2019-05-23 19:00] VITALS: BP 113/62
[2019-05-23] MEDS: ALPRAZolam 0.25 MG TABLET PO PRN (19:20)
[2019-05-23] MEDS: HYDROcodone/APAP 5/325MG 1 TAB TABLET PO PRN (21:45)
[2019-05-23 23:00] VITALS: BP 126/77
[2019-05-24 03:00] VITALS: BP 115/74
[2019-05-24] MEDS: HYDROcodone/APAP 5/325MG 1 TAB TABLET PO PRN ×2 (05:54→23:50)
[2019-05-24] MEDS: IV NORMAL SALINE 1000ML BAG 1,000 ML IV SCH (05:54)
[2019-05-24] MEDS: methylPREDNISolone SOD SUCC PF 40 MG/ML VIAL. IV SCH ×3 (05:54→21:36)
[2019-05-24] MEDS: ALPRAZolam 0.25 MG TABLET PO PRN ×3 (05:54→21:42)
[2019-05-24] MEDS: ONDANSETRON ODT 4 MG TAB.RAPDIS. PO SCH ×5 (05:55→23:50)
[2019-05-24 07:00] VITALS: BP 115/64
[2019-05-24] MEDS: PANTOPRAZOLE 40 MG TABLET.DR. PO SCH ×2 (08:46→18:13)
[2019-05-24] MEDS: SUCRALFATE 1 GM TABLET. PO SCH ×2 (08:46→18:12)
[2019-05-24] MEDS: GABAPENTIN 300 MG CAPSULE. PO SCH (08:48)
[2019-05-24] MEDS: DICYCLOMINE HCL 10 MG CAPSULE PO SCH ×3 (08:48→21:35)
[2019-05-24] MEDS: diphenhydrAMINE 50 MG/ML VIAL IVP SCH ×4 (08:48→21:35)
[2019-05-24] MEDS: valACYclovir 500 MG TABLET. PO SCH ×3 (08:49→21:34)
[2019-05-24] MEDS: MORPHINE IR 15 MG TABLET PO SCH ×4 (08:50→21:35)
--- NOTE | 2019-05-24 10:39 | PDOC ---
PROGRESS NOTES History of Present Illness History of Present Illness VTE Prophylaxis Ordered VTE Prophylaxis Devices: Yes VTE Pharmacological Prophylaxi: Yes Assessment/Plan Assessment/Plan Diffuse skin rash /// Allergic dermatitis - prob due to gabapentin or artificial honey she bought urticaria benadryl , steroid, hx LEft buttock HZV (shingles)- continued acyvlovir - Bipolar, asthma stable- hx obstipation, constipation LEUKOCYTOSIS sec steroids PLAn: more than 2 days to recover FULL CODE med surg floor CBC TODAY FOOD DIARY, KEEP,, avoid peanuts, shellfish, food dyes stop gabapentin, stop honey use 27 MIN PT EXAM ,CHART REVIEW, > 50% OF TIME SPENT WITH EXAM, CHART REVIEW, PT CARE COORDINATION Vitals Vitals Vital Signs Date Time Temp Pulse Resp B/P (MAP) Pulse Ox O2 Delivery O2 Flow Rate FiO2 05/24/19 08:50 Room Air 05/24/19 07:00 97.8 67 16 115/64 (81) 95 97.8 Physical Exam General: Alert, Oriented X3, Cooperative, No acute distress Heart: Regular rate, Normal S1 Lungs: Clear Abdomen: Normal bowel sounds, Soft, No tenderness, No hepatosplenomegaly, No masses Extremities: No clubbing, No cyanosis, No edema, Normal pulses, No tenderness/swelling Skin: Other (The lesions are maculopapular, some coalescing, pruritic, some are raised, non vesicular - not hives yet but seem to be forming into groups, No skin breaks) Labs LABS Laboratory Tests Test 05/23/19 14:05 Lactic Acid Level 1.8 mmol/L (0.4-2.0) Assessment and Plan Assessmemt and Plan Problems Medical Problems: (1) Allergic reaction Status: Acute (2) Anxiety Status: Acute (3) Lactic acid blood increased Status: Acute Comment Review of Relevant I have reviewed the following items esau (where applicable) has been applied. Labs Laboratory Tests Test 05/23/19 10:35 05/23/19 14:05 White Blood Count 16.7 x10^3/uL (4.0-11.0) Red Blood Count 4.84 x10^6/uL (3.50-5.40) Hemoglobin 15.0 g/dL (12.0-15.5) Hematocrit 44.6 % (36.0-47.0) Mean Corpuscular Volume 92 fL (79-100) Mean Corpuscular Hemoglobin 31 pg (25-35) Mean Corpuscular Hemoglobin Concent 34 g/dL (31-37) Red Cell Distribution Width 13.1 % (11.5-14.5) Platelet Count 382 x10^3/uL (140-400) Neutrophils (%) (Auto) 90 % (31-73) Lymphocytes (%) (Auto) 6 % (24-48) Monocytes (%) (Auto) 4 % (0-9) Eosinophils (%) (Auto) 0 % (0-3) Basophils (%) (Auto) 0 % (0-3) Neutrophils # (Auto) 15.1 x10^3/uL (1.8-7.7) Lymphocytes # (Auto) 1.0 x10^3/uL (1.0-4.8) Monocytes # (Auto) 0.6 x10^3/uL (0.0-1.1) Eosinophils # (Auto) 0.0 x10^3/uL (0.0-0.7) Basophils # (Auto) 0.0 x10^3/uL (0.0-0.2) Segmented Neutrophils % 83 % (35-66) Band Neutrophils % 2 % (0-9) Lymphocytes % 15 % (24-48) Platelet Estimate Adequate (ADEQUATE) Sodium Level 143 mmol/L (136-145) Potassium Level 4.2 mmol/L (3.5-5.1) Chloride Level 106 mmol/L (98-107) Carbon Dioxide Level 28 mmol/L (21-32) Anion Gap 9 (6-14) Blood Urea Nitrogen 14 mg/dL (7-20) Creatinine 0.9 mg/dL (0.6-1.0) Estimated GFR (Cockcroft-Gault) 62.5 BUN/Creatinine Ratio 16 (6-20) Glucose Level 135 mg/dL (70-99) Lactic Acid Level 2.4 mmol/L (0.4-2.0) 1.8 mmol/L (0.4-2.0) Calcium Level 9.9 mg/dL (8.5-10.1) Total Bilirubin 0.4 mg/dL (0.2-1.0) Aspartate Amino Transf (AST/SGOT) 20 U/L (15-37) Alanine Aminotransferase (ALT/SGPT) 39 U/L (14-59) Alkaline Phosphatase 82 U/L (46-116) Total Protein 7.7 g/dL (6.4-8.2) Albumin 3.9 g/dL (3.4-5.0) Albumin/Globulin Ratio 1.0 (1.0-1.7) Laboratory Tests Test 05/23/19 14:05 Lactic Acid Level 1.8 mmol/L (0.4-2.0) Medications Current Medications Methylprednisolone Sodium Succinate (SOLU-Medrol 125MG VIAL) 125 mg 1X ONCE IV Last administered on 05/23/19 10:43; Start 05/23/19 at 10:45; Stop 05/23/19 at 10:46; Status DC Diphenhydramine HCl (Benadryl) 50 mg 1X ONCE IV Last administered on 05/23/19at 10:43; Start 05/23/19 at 10:45; Stop 05/23/19 at 10:46; Status DC Famotidine (Pepcid Vial) 20 mg 1X ONCE IVP Last administered on 05/23/19at 10:44; Start 05/23/19 at 10:45; Stop 05/23/19 at 10:46; Status DC Sodium Chloride 1,000 ml @ 1,000 mls/hr Q1H IV Last administered on 05/23/19at 10:43; Start 05/23/19 at 10:37; Stop 05/23/19 at 11:36; Status DC Ceftriaxone Sodium (Rocephin) 1 gm 1X ONCE IVP Last administered on 05/23/19 12:32; Start 05/23/19 at 12:15; Stop 05/23/19 at 12:16; Status DC Sodium Chloride 1,000 ml @ 1,000 mls/hr 1X ONCE IV Last administered on 05/23/19at 12:32; Start 05/23/19 at 12:15; Stop 05/23/19 at 13:14; Status DC Hydroxyzine HCl (Atarax) 50 mg 1X STAT PO Last administered on 05/23/19at 12:32; Start 05/23/19 at 12:12; Stop 05/23/19 at 12:15; Status DC Dicyclomine HCl (Bentyl) 10 mg TID PO Last administered on 05/24/19at 08:48; Start 05/23/19 at 14:00 Gabapentin (Neurontin) 300 mg TID PO Last administered on 05/24/19 08:48; Start 05/23/19 at 14:00 Acetaminophen/ Hydrocodone Bitart (Lortab 5/325) 1 tab PRN Q6HRS PRN PO MODERATE PAIN Last administered on 05/24/19 05:54; Start 05/23/19 at 12:30 Hyoscyamine (Anaspaz) 0.125 mg PRN Q4HRS PRN PO STOMACH CRAMPING; Start 05/23/19 at 12:30 Morphine Sulfate (Morphine Ir) 15 mg QID PO Last administered on 05/24/19 08:50; Start 05/23/19 at 13:00 Sucralfate (Carafate) 1 gm BIDAC PO Last administered on 05/24/19 08:46; Start 05/23/19 at 16:30 Valacyclovir HCl (Valtrex) 1,000 mg TID PO Last administered on 05/24/19 08:49; Start 05/23/19 at 14:00 Ondansetron HCl (Zofran Odt) 4 mg Q6HRS PO Last administered on 05/24/19 05:55; Start 05/23/19 at 13:30 Prednisone (Prednisone) 50 mg DAILY PO ; Start 05/23/19 at 13:00; Status UNV Pantoprazole Sodium (Protonix) 40 mg BIDAC PO Last administered on 05/24/19 08:46; Start 05/23/19 at 16:30 Zolpidem Tartrate (Ambien) 5 mg PRN QHS PRN PO INSOMNIA Last administered on 05/23/19 22:58; Start 05/23/19 at 12:30 Clonidine HCl (Catapres) 0.1 mg PRN Q1HR PRN PO HYPERTENSION; Start 05/23/19 at 12:30 Diphenhydramine HCl (Benadryl) 25 mg PRN Q6HRS PRN PO ITCHING; Start 05/23/19 at 12:30; Stop 05/23/19 at 12:42; Status DC Sodium Chloride 1,000 ml @ 125 mls/hr Q8H IV Last administered on 05/24/19 05:54; Start 05/23/19 at 12:22; Stop 05/24/19 at 12:21 Methylprednisolone Sodium Succinate (SOLU-Medrol 40MG VIAL) 40 mg Q8HRS IV Last administered on 05/24/19at 05:54; Start 05/23/19 at 14:00 Diphenhydramine HCl (Benadryl) 25 mg QID IVP Last administered on 05/24/19at 08:48; Start 05/23/19 at 13:00 Alprazolam (Xanax) 0.25 mg PRN BID PRN PO ANXIETY / AGITATION Last administered on 05/24/19at 05:54; Start 05/23/19 at 19:00 Active Scripts Active [place] 5-325 Tablet (Acetaminophen/Hydrocodone Bitart) 1 Each Tablet 1 Tab PO PRN Q6HRS PRN Avoid driving or drinking alcohol while taking this medication Prednisone 50 Mg Tablet 1 Tab PO DAILY Start 01/21/19 Morphine Sulfate 15 Mg Tablet 1 Tab PO QID 5 Days Gabapentin 300 Mg Capsule 300 Mg PO TID 30 Days Valacyclovir (Valacyclovir Hcl) 500 Mg Tablet 1,000 Mg PO TID 7 Days [Pantoprazole] 40 MG Tablet.dr 40 Mg PO BID 2 weeks BID, then daily Carafate (Sucralfate) 1 Gm Tablet 1 Gm PO BID Anaspaz (Hyoscyamine Sulfate) 0.125 Mg Tab.rapdis 0.125 Mg PO PRN Q4HRS PRN Dicyclomine Hcl 10 Mg Capsule 10 Mg PO TID Zofran (Ondansetron Hcl) 4 Mg Tablet 1 Tab PO Q6HRS Vitals/I & O Vital Sign - Last 24 Hours 05/23/19 05/23/19 05/23/19 05/23/19 12:00 12:30 13:00 14:32 Pulse 67 67 65 58 Resp 16 16 16 16 B/P (MAP) 138/74 (95) 130/78 (95) 134/91 (105) 125/69 (87) Pulse Ox 94 96 96 96 O2 Delivery Room Air Room Air Room Air Room Air 05/23/19 05/23/19 05/23/19 05/23/19 14:45 15:30 16:53 17:53 Pulse 76 Resp 18 16 B/P (MAP) 127/69 (88) Pulse Ox 97 97 O2 Delivery Room Air Room Air Room Air Room Air 05/23/19 05/23/19 05/23/19 05/23/19 19:00 20:00 21:32 21:45 Temp 97.7 97.7 Pulse 66 Resp 18 20 20 B/P (MAP) 113/62 (79) Pulse Ox 95 O2 Delivery Room Air Room Air Room Air Room Air 05/23/19 05/23/19 05/23/19 05/24/19 22:32 22:32 23:00 03:00 Temp 97.6 97.7 97.6 97.7 Pulse 62 74 Resp 20 20 18 18 B/P (MAP) 126/77 (93) 115/74 (88) Pulse Ox 96 94 O2 Delivery Room Air Room Air Room Air Room Air 05/24/19 05/24/19 05/24/19 05/24/19 05:54 06:54 07:00 08:50 Temp 97.8 97.8 Pulse 67 Resp 20 16 B/P (MAP) 115/64 (81) Pulse Ox 95 O2 Delivery Room Air Room Air Room Air Room Air Intake and Output 05/23/19 05/23/19 05/24/19 14:59 22:59 06:59 Intake Total 2000 ml 600 ml 1100 ml Balance 2000 ml 600 ml 1100 ml DOMONIQUE GONZALEZ MD May 24, 2019 10:39
[2019-05-24 11:00] VITALS: BP 106/51
[2019-05-24 13:43] LABS: BASO % 0 % (0-3); EOS % 0 % (0-3); HEMATOCRIT 40.3 % (36.0-47.0); HEMOGLOBIN 13.5 g/dL (12.0-15.5); LYMPH # 1.3 x10^3/uL (1.0-4.8); LYMPH % 5 % (24-48); MEAN CORPUSCULAR HEMOGLOBIN 31 pg (25-35); MEAN CORPUSCULAR HGB CONC 34 g/dL (31-37); MEAN CORPUSCULAR VOLUME 94 fL (79-100); MONO # 0.7 x10^3/uL (0.0-1.1); MONO % 3 % (0-9); NEUT # 22.3 x10^3/uL (1.8-7.7); NEUT % 92 % (31-73); PLATELET COUNT 345 x10^3/uL (140-400); RED CELL DISTRIBUTION WIDTH 13.4 % (11.5-14.5); WHITE BLOOD COUNT 24.4 x10^3/uL (4.0-11.0)
[2019-05-24 15:00] VITALS: BP 124/55
--- NOTE | 2019-05-24 15:47 | NUR ---
SW consulted for dc planning. Chart reviewed and pt lives at home. Pt has PMHx of Bipolar, Asthma and is admitted for allergic reaction. Pt is independent with ADL's and no skilled intervention needed at this time. SW will be available as needed.
--- NOTE | 2019-05-24 16:02 | NUR ---
1400 Meds: pt requested not to be woken up for meds as she did not sleep well last night. Gave meds when pt woke up.
[2019-05-24 19:00] VITALS: BP 118/58
[2019-05-24 23:00] VITALS: BP 121/72
[2019-05-25] MEDS: ONDANSETRON ODT 4 MG TAB.RAPDIS. PO SCH ×2 (06:00→12:14)
[2019-05-25] MEDS: methylPREDNISolone SOD SUCC PF 40 MG/ML VIAL. IV SCH ×2 (06:08→14:00)
[2019-05-25 07:00] VITALS: BP 124/70
[2019-05-25] MEDS: DICYCLOMINE HCL 10 MG CAPSULE PO SCH ×2 (08:01→14:00)
[2019-05-25] MEDS: SUCRALFATE 1 GM TABLET. PO SCH (08:02)
[2019-05-25] MEDS: MORPHINE IR 15 MG TABLET PO SCH ×2 (08:02→11:55)
[2019-05-25] MEDS: PANTOPRAZOLE 40 MG TABLET.DR. PO SCH (08:02)
--- NOTE | 2019-05-25 10:03 | PDOC ---
PROGRESS NOTES History of Present Illness History of Present Illness VTE Prophylaxis Ordered VTE Prophylaxis Devices: Yes VTE Pharmacological Prophylaxi: Yes Assessment/Plan Assessment/Plan Diffuse skin rash /// urticaria - prob due to gabapentin or artificial honey she bought urticaria benadryl , steroid, hx LEft buttock HZV (shingles)- no active continued acyvlovir - Bipolar, asthma stable- hx obstipation, constipation LEUKOCYTOSIS sec steroids PLAn: d/c isolation FULL CODE med surg floor CBC TODAY FOOD DIARY, KEEP,, avoid peanuts, shellfish, food dyes, see PCP NEXT WEEK stop gabapentin, stop honey use 27 MIN PT EXAM ,CHART REVIEW d/c planning time, > 50% OF TIME SPENT WITH EXAM, CHART REVIEW, PT CARE COORDINATION Vitals Vitals Vital Signs Date Time Temp Pulse Resp B/P (MAP) Pulse Ox O2 Delivery O2 Flow Rate FiO2 05/25/19 08:02 24 Room Air 05/25/19 07:00 97.7 86 124/70 (88) 94 97.7 Physical Exam General: Alert, Oriented X3, Cooperative, No acute distress Heart: Regular rate, Normal S1 Lungs: Clear Abdomen: Normal bowel sounds, Soft, No tenderness, No hepatosplenomegaly, No masses Extremities: No clubbing, No cyanosis, No edema, Normal pulses, No tendern ess/swelling Skin: Other (The lesions are maculopapular, MUCH IMPROVED No skin breaks) Labs LABS Laboratory Tests Test 05/24/19 13:00 White Blood Count 24.4 x10^3/uL (4.0-11.0) Red Blood Count 4.30 x10^6/uL (3.50-5.40) Hemoglobin 13.5 g/dL (12.0-15.5) Hematocrit 40.3 % (36.0-47.0) Mean Corpuscular Volume 94 fL (79-100) Mean Corpuscular Hemoglobin 31 pg (25-35) Mean Corpuscular Hemoglobin Concent 34 g/dL (31-37) Red Cell Distribution Width 13.4 % (11.5-14.5) Platelet Count 345 x10^3/uL (140-400) Neutrophils (%) (Auto) 92 % (31-73) Lymphocytes (%) (Auto) 5 % (24-48) Monocytes (%) (Auto) 3 % (0-9) Eosinophils (%) (Auto) 0 % (0-3) Basophils (%) (Auto) 0 % (0-3) Neutrophils # (Auto) 22.3 x10^3/uL (1.8-7.7) Lymphocytes # (Auto) 1.3 x10^3/uL (1.0-4.8) Monocytes # (Auto) 0.7 x10^3/uL (0.0-1.1) Eosinophils # (Auto) 0.0 x10^3/uL (0.0-0.7) Basophils # (Auto) 0.0 x10^3/uL (0.0-0.2) Assessment and Plan Assessmemt and Plan Problems Medical Problems: (1) Allergic reaction Status: Acute (2) Anxiety Status: Acute (3) Lactic acid blood increased Status: Acute Comment Review of Relevant I have reviewed the following items esau (where applicable) has been applied. Labs Laboratory Tests Test 05/23/19 10:35 05/23/19 14:05 05/24/19 13:00 White Blood Count 16.7 x10^3/uL (4.0-11.0) 24.4 x10^3/uL (4.0-11.0) Red Blood Count 4.84 x10^6/uL (3.50-5.40) 4.30 x10^6/uL (3.50-5.40) Hemoglobin 15.0 g/dL (12.0-15.5) 13.5 g/dL (12.0-15.5) Hematocrit 44.6 % (36.0-47.0) 40.3 % (36.0-47.0) Mean Corpuscular Volume 92 fL (79-100) 94 fL (79-100) Mean Corpuscular Hemoglobin 31 pg (25-35) 31 pg (25-35) Mean Corpuscular Hemoglobin Concent 34 g/dL (31-37) 34 g/dL (31-37) Red Cell Distribution Width 13.1 % (11.5-14.5) 13.4 % (11.5-14.5) Platelet Count 382 x10^3/uL (140-400) 345 x10^3/uL (140-400) Neutrophils (%) (Auto) 90 % (31-73) 92 % (31-73) Lymphocytes (%) (Auto) 6 % (24-48) 5 % (24-48) Monocytes (%) (Auto) 4 % (0-9) 3 % (0-9) Eosinophils (%) (Auto) 0 % (0-3) 0 % (0-3) Basophils (%) (Auto) 0 % (0-3) 0 % (0-3) Neutrophils # (Auto) 15.1 x10^3/uL (1.8-7.7) 22.3 x10^3/uL (1.8-7.7) Lymphocytes # (Auto) 1.0 x10^3/uL (1.0-4.8) 1.3 x10^3/uL (1.0-4.8) Monocytes # (Auto) 0.6 x10^3/uL (0.0-1.1) 0.7 x10^3/uL (0.0-1.1) Eosinophils # (Auto) 0.0 x10^3/uL (0.0-0.7) 0.0 x10^3/uL (0.0-0.7) Basophils # (Auto) 0.0 x10^3/uL (0.0-0.2) 0.0 x10^3/uL (0.0-0.2) Segmented Neutrophils % 83 % (35-66) Band Neutrophils % 2 % (0-9) Lymphocytes % 15 % (24-48) Platelet Estimate Adequate (ADEQUATE) Sodium Level 143 mmol/L (136-145) Potassium Level 4.2 mmol/L (3.5-5.1) Chloride Level 106 mmol/L (98-107) Carbon Dioxide Level 28 mmol/L (21-32) Anion Gap 9 (6-14) Blood Urea Nitrogen 14 mg/dL (7-20) Creatinine 0.9 mg/dL (0.6-1.0) Estimated GFR (Cockcroft-Gault) 62.5 BUN/Creatinine Ratio 16 (6-20) Glucose Level 135 mg/dL (70-99) Lactic Acid Level 2.4 mmol/L (0.4-2.0) 1.8 mmol/L (0.4-2.0) Calcium Level 9.9 mg/dL (8.5-10.1) Total Bilirubin 0.4 mg/dL (0.2-1.0) Aspartate Amino Transf (AST/SGOT) 20 U/L (15-37) Alanine Aminotransferase (ALT/SGPT) 39 U/L (14-59) Alkaline Phosphatase 82 U/L (46-116) Total Protein 7.7 g/dL (6.4-8.2) Albumin 3.9 g/dL (3.4-5.0) Albumin/Globulin Ratio 1.0 (1.0-1.7) Laboratory Tests Test 05/24/19 13:00 White Blood Count 24.4 x10^3/uL (4.0-11.0) Red Blood Count 4.30 x10^6/uL (3.50-5.40) Hemoglobin 13.5 g/dL (12.0-15.5) Hematocrit 40.3 % (36.0-47.0) Mean Corpuscular Volume 94 fL (79-100) Mean Corpuscular Hemoglobin 31 pg (25-35) Mean Corpuscular Hemoglobin Concent 34 g/dL (31-37) Red Cell Distribution Width 13.4 % (11.5-14.5) Platelet Count 345 x10^3/uL (140-400) Neutrophils (%) (Auto) 92 % (31-73) Lymphocytes (%) (Auto) 5 % (24-48) Monocytes (%) (Auto) 3 % (0-9) Eosinophils (%) (Auto) 0 % (0-3) Basophils (%) (Auto) 0 % (0-3) Neutrophils # (Auto) 22.3 x10^3/uL (1.8-7.7) Lymphocytes # (Auto) 1.3 x10^3/uL (1.0-4.8) Monocytes # (Auto) 0.7 x10^3/uL (0.0-1.1) Eosinophils # (Auto) 0.0 x10^3/uL (0.0-0.7) Basophils # (Auto) 0.0 x10^3/uL (0.0-0.2) Microbiology 05/23/19 Blood Culture - Preliminary, Resulted NO GROWTH AFTER 1 DAY Medications Current Medications Methylprednisolone Sodium Succinate (SOLU-Medrol 125MG VIAL) 125 mg 1X ONCE IV Last administered on 05/23/19 10:43; Start 05/23/19 at 10:45; Stop 05/23/19 at 10:46; Status DC Diphenhydramine HCl (Benadryl) 50 mg 1X ONCE IV Last administered on 05/23/19at 10:43; Start 05/23/19 at 10:45; Stop 05/23/19 at 10:46; Status DC Famotidine (Pepcid Vial) 20 mg 1X ONCE IVP Last administered on 05/23/19at 10:44; Start 05/23/19 at 10:45; Stop 05/23/19 at 10:46; Status DC Sodium Chloride 1,000 ml @ 1,000 mls/hr Q1H IV Last administered on 05/23/19at 10:43; Start 05/23/19 at 10:37; Stop 05/23/19 at 11:36; Status DC Ceftriaxone Sodium (Rocephin) 1 gm 1X ONCE IVP Last administered on 05/23/19 12:32; Start 05/23/19 at 12:15; Stop 05/23/19 at 12:16; Status DC Sodium Chloride 1,000 ml @ 1,000 mls/hr 1X ONCE IV Last administered on 05/23/19at 12:32; Start 05/23/19 at 12:15; Stop 05/23/19 at 13:14; Status DC Hydroxyzine HCl (Atarax) 50 mg 1X STAT PO Last administered on 05/23/19at 12:32; Start 05/23/19 at 12:12; Stop 05/23/19 at 12:15; Status DC Dicyclomine HCl (Bentyl) 10 mg TID PO Last administered on 05/25/19at 08:01; Start 05/23/19 at 14:00 Gabapentin (Neurontin) 300 mg TID PO Last administered on 05/24/19at 08:48; Start 05/23/19 at 14:00; Stop 05/24/19 at 12:08; Status DC Acetaminophen/ Hydrocodone Bitart (Lortab 5/325) 1 tab PRN Q6HRS PRN PO MODERATE PAIN Last administered on 05/24/19at 23:50; Start 05/23/19 at 12:30 Hyoscyamine (Anaspaz) 0.125 mg PRN Q4HRS PRN PO STOMACH CRAMPING; Start 05/23/19 at 12:30 Morphine Sulfate (Morphine Ir) 15 mg QID PO Last administered on 05/25/19 08:02; Start 05/23/19 at 13:00 Sucralfate (Carafate) 1 gm BIDAC PO Last administered on 05/25/19 08:02; Start 05/23/19 at 16:30 Valacyclovir HCl (Valtrex) 1,000 mg TID PO Last administered on 05/24/19 21:34; Start 05/23/19 at 14:00 Ondansetron HCl (Zofran Odt) 4 mg Q6HRS PO Last administered on 05/24/19 18:13; Start 05/23/19 at 13:30 Prednisone (Prednisone) 50 mg DAILY PO ; Start 05/23/19 at 13:00; Status UNV Pantoprazole Sodium (Protonix) 40 mg BIDAC PO Last administered on 05/25/19 08:02; Start 05/23/19 at 16:30 Zolpidem Tartrate (Ambien) 5 mg PRN QHS PRN PO INSOMNIA Last administered on 05/23/19at 22:58; Start 05/23/19 at 12:30 Clonidine HCl (Catapres) 0.1 mg PRN Q1HR PRN PO HYPERTENSION; Start 05/23/19 at 12:30 Diphenhydramine HCl (Benadryl) 25 mg PRN Q6HRS PRN PO ITCHING; Start 05/23/19 at 12:30; Stop 05/23/19 at 12:42; Status DC Sodium Chloride 1,000 ml @ 125 mls/hr Q8H IV Last administered on 05/24/19at 05:54; Start 05/23/19 at 12:22; Stop 05/24/19 at 12:21; Status DC Methylprednisolone Sodium Succinate (SOLU-Medrol 40MG VIAL) 40 mg Q8HRS IV Last administered on 05/25/19at 06:08; Start 05/23/19 at 14:00 Diphenhydramine HCl (Benadryl) 25 mg QID IVP Last administered on 05/24/19 21:35; Start 05/23/19 at 13:00; Stop 05/25/19 at 09:43; Status DC Alprazolam (Xanax) 0.25 mg PRN BID PRN PO ANXIETY / AGITATION Last administered on 05/24/19at 21:42; Start 05/23/19 at 19:00 Diphenhydramine HCl (Benadryl) 25 mg [id number] PO ; Start 05/25/19 at 12:00 Active Scripts Active [place] 5-325 Tablet (Acetaminophen/Hydrocodone Bitart) 1 Each Tablet 1 Tab PO PRN Q6HRS PRN Avoid driving or drinking alcohol while taking this medication Prednisone 50 Mg Tablet 1 Tab PO DAILY Start 01/21/19 Morphine Sulfate 15 Mg Tablet 1 Tab PO QID 5 Days Gabapentin 300 Mg Capsule 300 Mg PO TID 30 Days Valacyclovir (Valacyclovir Hcl) 500 Mg Tablet 1,000 Mg PO TID 7 Days [Pantoprazole] 40 MG Tablet.dr 40 Mg PO BID 2 weeks BID, then daily Carafate (Sucralfate) 1 Gm Tablet 1 Gm PO BID Anaspaz (Hyoscyamine Sulfate) 0.125 Mg Tab.rapdis 0.125 Mg PO PRN Q4HRS PRN Dicyclomine Hcl 10 Mg Capsule 10 Mg PO TID Zofran (Ondansetron Hcl) 4 Mg Tablet 1 Tab PO Q6HRS Vitals/I & O Vital Sign - Last 24 Hours 05/24/19 05/24/19 05/24/19 05/24/19 11:00 13:27 14:27 15:00 Temp 97.6 97.9 97.6 97.9 Pulse 72 69 Resp 14 16 B/P (MAP) 106/51 (69) 124/55 (78) Pulse Ox 94 96 O2 Delivery Room Air Room Air Room Air Room Air 05/24/19 05/24/19 05/24/19 05/24/19 18:13 19:00 19:13 20:00 Temp 97.7 97.7 Pulse 85 Resp 18 B/P (MAP) 118/58 (78) Pulse Ox 92 O2 Delivery Room Air Room Air Room Air Room Air 05/24/19 05/24/19 05/24/19 05/24/19 21:35 22:35 23:00 23:50 Temp 97.6 97.6 Pulse 71 Resp 18 B/P (MAP) 121/72 (88) Pulse Ox 94 O2 Delivery Room Air Room Air Room Air Room Air 05/25/19 05/25/19 05/25/19 00:50 07:00 08:02 Temp 97.7 97.7 Pulse 86 Resp 18 24 B/P (MAP) 124/70 (88) Pulse Ox 94 O2 Delivery Room Air Room Air Room Air Intake and Output 05/24/19 05/24/19 05/25/19 14:59 22:59 06:59 Intake Total 0 ml 250 ml Output Total 400 ml Balance -400 ml 0 ml 250 ml DOMONIQUE GONZALEZ MD May 25, 2019 10:03
[2019-05-25] MEDS: valACYclovir 500 MG TABLET. PO SCH ×2 (10:17→14:00)
[2019-05-25 11:00] VITALS: BP 122/68
[2019-05-25] MEDS ORDERED: diphenhydrAMINE HCL 25 MG CAPSULE PO SCH (12:00)
--- NOTE | 2019-05-25 13:07 | PDOC3 ---
Discharge Summary Date of Admission: May 23, 2019 Date of Discharge: May 25, 2019 Follow-Up: 3-5 days Admitting Diagnosis comment: DISCHARGE DX Assessment/Plan Diffuse skin rash /// urticaria - due to gabapentin or artificial honey she bought LAST WEEK urticaria benadryl , steroid, hx LEft buttock HZV (shingles)- no active continued acyvlovir - Bipolar, asthma stable- hx obstipation, constipation LEUKOCYTOSIS sec steroids PLAn: d/c isolation FULL CODE med surg floor CBC TODAY FOOD DIARY, KEEP,, avoid peanuts, shellfish, food dyes, HONEY, see PCP NEXT WEEK stop gabapentin, stop honey use 27 MIN PT EXAM ,CHART REVIEW d/c planning time, > 50% OF TIME SPENT WITH EXAM, CHART REVIEW, PT CARE COORDINATION Vitals Vitals Vital Signs Date Time Temp Pulse Resp B/P (MAP) Pulse Ox O2 Delivery O2 Flow Rate FiO2 05/25/19 08:02 24 Room Air 05/25/19 07:00 97.7 86 124/70 (88) 94 97.7 Physical Exam General: Alert, Oriented X3, Cooperative, No acute distress Heart: Regular rate, Normal S1 Lungs: Clear Abdomen: Normal bowel sounds, Soft, No tenderness, No hepatosplenomegaly, No masses Extremities: No clubbing, No cyanosis, No edema, Normal pulses, No tenderness/s welling Skin: Other (The lesions are maculopapular, MUCH IMPROVED No skin breaks) FINAL DIAGNOSIS Problems Medical Problems: (1) Allergic reaction Status: Acute (2) Anxiety Status: Acute (3) Lactic acid blood increased Status: Acute Brief Hospital Course Ms. Toro is a 69 old [sex] who presented with [DIFFUSE URTICARIA ] CONDITION AT DISCHARGE: Improved Discharge Medications Current Medications Methylprednisolone Sodium Succinate (SOLU-Medrol 125MG VIAL) 125 mg 1X ONCE IV Last administered on 05/23/19at 10:43; Start 05/23/19 at 10:45; Stop 05/23/19 at 10:46; Status DC Diphenhydramine HCl (Benadryl) 50 mg 1X ONCE IV Last administered on 05/23/19at 10:43; Start 05/23/19 at 10:45; Stop 05/23/19 at 10:46; Status DC Famotidine (Pepcid Vial) 20 mg 1X ONCE IVP Last administered on 05/23/19 10:44; Start 05/23/19 at 10:45; Stop 05/23/19 at 10:46; Status DC Sodium Chloride 1,000 ml @ 1,000 mls/hr Q1H IV Last administered on 05/23/19 10:43; Start 05/23/19 at 10:37; Stop 05/23/19 at 11:36; Status DC Ceftriaxone Sodium (Rocephin) 1 gm 1X ONCE IVP Last administered on 05/23/19 12:32; Start 05/23/19 at 12:15; Stop 05/23/19 at 12:16; Status DC Sodium Chloride 1,000 ml @ 1,000 mls/hr 1X ONCE IV Last administered on 12:32; Start 05/23/19 at 12:15; Stop 05/23/19 at 13:14; Status DC Hydroxyzine HCl (Atarax) 50 mg 1X STAT PO Last administered on 05/23/19 12:32; Start 05/23/19 at 12:12; Stop 05/23/19 at 12:15; Status DC Dicyclomine HCl (Bentyl) 10 mg TID PO Last administered on 05/25/19 08:01; Start 05/23/19 at 14:00 Gabapentin (Neurontin) 300 mg TID PO Last administered on 05/24/19 08:48; Start 05/23/19 at 14:00; Stop 05/24/19 at 12:08; Status DC Acetaminophen/ Hydrocodone Bitart (Lortab 5/325) 1 tab PRN Q6HRS PRN PO MODERATE PAIN Last administered on 05/24/19at 23:50; Start 05/23/19 at 12:30 Hyoscyamine (Anaspaz) 0.125 mg PRN Q4HRS PRN PO STOMACH CRAMPING; Start 05/23/19 at 12:30 Morphine Sulfate (Morphine Ir) 15 mg QID PO Last administered on 05/25/19 08:02; Start 05/23/19 at 13:00 Sucralfate (Carafate) 1 gm BIDAC PO Last administered on 05/25/19 08:02; Start 05/23/19 at 16:30 Valacyclovir HCl (Valtrex) 1,000 mg TID PO Last administered on 05/25/19at 10:17; Start 05/23/19 at 14:00 Ondansetron HCl (Zofran Odt) 4 mg Q6HRS PO Last administered on 05/25/19at 12:14; Start 05/23/19 at 13:30 Prednisone (Prednisone) 50 mg DAILY PO ; Start 05/23/19 at 13:00; Status UNV Pantoprazole Sodium (Protonix) 40 mg BIDAC PO Last administered on 05/25/19at 08:02; Start 05/23/19 at 16:30 Zolpidem Tartrate (Ambien) 5 mg PRN QHS PRN PO INSOMNIA Last administered on 05/23/19at 22:58; Start 05/23/19 at 12:30 Clonidine HCl (Catapres) 0.1 mg PRN Q1HR PRN PO HYPERTENSION; Start 05/23/19 at 12:30 Diphenhydramine HCl (Benadryl) 25 mg PRN Q6HRS PRN PO ITCHING; Start 05/23/19 at 12:30; Stop 05/23/19 at 12:42; Status DC Sodium Chloride 1,000 ml @ 125 mls/hr Q8H IV Last administered on 05/24/19at 05:54; Start 05/23/19 at 12:22; Stop 05/24/19 at 12:21; Status DC Methylprednisolone Sodium Succinate (SOLU-Medrol 40MG VIAL) 40 mg Q8HRS IV Last administered on 05/25/19at 06:08; Start 05/23/19 at 14:00 Diphenhydramine HCl (Benadryl) 25 mg QID IVP Last administered on 05/24/19at 21:35; Start 05/23/19 at 13:00; Stop 05/25/19 at 09:43; Status DC Alprazolam (Xanax) 0.25 mg PRN BID PRN PO ANXIETY / AGITATION Last administered on 05/24/19at 21:42; Start 05/23/19 at 19:00 Diphenhydramine HCl (Benadryl) 25 mg [id number] PO Last administered on 05/25/19at 10:17; Start 05/25/19 at 12:00 Active Scripts Active [place] 5-325 Tablet (Acetaminophen/Hydrocodone Bitart) 1 Each Tablet 1 Tab PO PRN Q6HRS PRN Avoid driving or drinking alcohol while taking this medication Prednisone 50 Mg Tablet 1 Tab PO DAILY Start 01/21/19 Morphine Sulfate 15 Mg Tablet 1 Tab PO QID 5 Days Gabapentin 300 Mg Capsule 300 Mg PO TID 30 Days Valacyclovir (Valacyclovir Hcl) 500 Mg Tablet 1,000 Mg PO TID 7 Days [Pantoprazole] 40 MG Tablet.dr 40 Mg PO BID 2 weeks BID, then daily Carafate (Sucralfate) 1 Gm Tablet 1 Gm PO BID Anaspaz (Hyoscyamine Sulfate) 0.125 Mg Tab.rapdis 0.125 Mg PO PRN Q4HRS PRN Dicyclomine Hcl 10 Mg Capsule 10 Mg PO TID Zofran (Ondansetron Hcl) 4 Mg Tablet 1 Tab PO Q6HRS Vital Signs Vital Signs Date Time Temp Pulse Resp B/P (MAP) Pulse Ox O2 Delivery O2 Flow Rate FiO2 05/25/19 11:00 97.9 69 18 122/68 (86) 93 Room Air 97.9 Labs Laboratory Tests Test 05/23/19 14:05 05/24/19 13:00 Lactic Acid Level 1.8 mmol/L (0.4-2.0) White Blood Count 24.4 x10^3/uL (4.0-11.0) Red Blood Count 4.30 x10^6/uL (3.50-5.40) Hemoglobin 13.5 g/dL (12.0-15.5) Hematocrit 40.3 % (36.0-47.0) Mean Corpuscular Volume 94 fL (79-100) Mean Corpuscular Hemoglobin 31 pg (25-35) Mean Corpuscular Hemoglobin Concent 34 g/dL (31-37) Red Cell Distribution Width 13.4 % (11.5-14.5) Platelet Count 345 x10^3/uL (140-400) Neutrophils (%) (Auto) 92 % (31-73) Lymphocytes (%) (Auto) 5 % (24-48) Monocytes (%) (Auto) 3 % (0-9) Eosinophils (%) (Auto) 0 % (0-3) Basophils (%) (Auto) 0 % (0-3) Neutrophils # (Auto) 22.3 x10^3/uL (1.8-7.7) Lymphocytes # (Auto) 1.3 x10^3/uL (1.0-4.8) Monocytes # (Auto) 0.7 x10^3/uL (0.0-1.1) Eosinophils # (Auto) 0.0 x10^3/uL (0.0-0.7) Basophils # (Auto) 0.0 x10^3/uL (0.0-0.2) Allergies Allergies Coded Allergies Type Severity Reaction Last Updated Verified latex Allergy Intermediate rash 11/30/17 Yes Disposition/Orders: D/C to Home DOMONIQUE GONZALEZ MD May 25, 2019 13:07
[2019-05-25] MEDS ORDERED: DIPH25CA23 PO (13:11)
--- NOTE | 2019-05-25 13:13 | DISCH ---
DISCHARGE INSTRUCTIONS Condition on Discharge Condition on Discharge: Stable Activity After Discharge Activity Instructions for Disc: Activity as tolerated Driving Instructions after Dis: Do not drive, Do not drive today Weight Bearing Status after Di: As tolerated Diet after Discharge Diet after Discharge: Regular Diet Texture: Regular Liquid Texture: Thin Liquid Checks after Discharge Checks after discharge: Check blood press - daily Contacting the DRKimmy after DC Call your doctor for: If your condition worsens Treatment/Equipment after DC Adaptive Equipment Issued: None Warfarin Follow-Up Warfarin Follow UP: SEE PCP NEXT WEEK DOMONIQUE GONZALEZ MD May 25, 2019 13:13
--- NOTE | 2019-05-25 14:38 | NUR ---
Discharge Note: CORNELIO MILLS [address] Discharge instructions and discharge home medications reviewed with Spouse and a copy given. All questions have been answered and understanding verbalized. The following instructions and handouts were given: prednisone, allergy, rash Discontinued lines and drains: peripheral line. Patient discharged to Home or Self Care with Family Member via Wheelchair
== END 2019-05-25 14:42 | disposition home or self-care (01) | DRG 607 ==
LOC: ER 10:23 → 5 SOUTH 12:11
PROVIDERS: ADMIT Internal Medicine; ATTEND Internal Medicine
DX: L50.0 Allergic urticaria (principal); R65.10 Systemic inflammatory response syndrome (SIRS) of non-infectious origin without acute organ dysfunction; Z91.040 Latex allergy status; B02.9 Zoster without complications; D72.829 Elevated white blood cell count, unspecified; F31.9 Bipolar disorder, unspecified; F41.9 Anxiety disorder, unspecified; J45.909 Unspecified asthma, uncomplicated; T42.6X5A Adverse effect of other antiepileptic and sedative-hypnotic drugs, initial encounter; Z88.8 Allergy status to other drugs, medicaments and biological substances
CPT/HCPCS: 36415; 80053; 83605; 85007; 85025; 87040; 96361; 96374; 96375; J0696; J1200; J2920; J2930; J3490; J7030; Q0162; Q0163; 99285-25; G0378

== ENCOUNTER 2019-05-28 11:28 | Emergency (ER) | payer BC, MEDICARE ==
[~2019-05-28] VITALS: Ht 167.6 cm; Wt 88.9 kg
[~2019-05-28 11:28] MED LIST changes: +DIPH25CA23 PO
--- NOTE | 2019-05-28 13:14 | PHYS DOC ---
Past Medical History Past Medical History: Asthma, Bipolar Additional Past Medical Histor: SHINGLES Past Surgical History: Tonsillectomy Additional Past Surgical Histo: RIGHT FOOT SX Alcohol Use: None Drug Use: None Adult General Chief Complaint Chief Complaint: OTHER COMPLAINTS HPI HPI 69-year-old female presents to the emergency department with complaints of rectal pain. Patient states she was seen here last week and admitted for allergic reaction and discharged on Tuesday. Tuesday she developed copious amounts of diarrhea, nausea, rectal pain and lower abdominal pain. Patient states the pain has become constant, stabbing sensation. She denies any fever, vomiting. She states she is plan for colonoscopy on Tuesday. Given the continued pain and worsening she presents to the ER for further evaluation. Review of Systems Review of Systems Constitutional: Denies fever or chills [] Respiratory: Denies cough or shortness of breath [] Cardiovascular: No additional information not addressed in HPI [] GI: Nausea, left lower quadrant abdominal pain : Denies dysuria or hematuria [] Musculoskeletal: Denies back pain or joint pain [] Integument: Denies rash or skin lesions [] Neurologic: Denies headache, focal weakness or sensory changes [] All other systems were reviewed and found to be within normal limits, except as documented in this note. Current Medications Current Medications Current Medications Medications (Trade) Dose Ordered Sig/Mervin Start Time Stop Time Status Last Admin Dose Admin Info (CONTRAST GIVEN -- Rx MONITORING) 1 each PRN DAILY PRN 05/28/19 13:30 05/30/19 13:29 Iohexol (Omnipaque 300 Mg/ml) 75 ml 1X ONCE 05/28/19 13:15 05/28/19 13:18 DC 05/28/19 15:00 75 ML Morphine Sulfate (Morphine Sulfate) 4 mg 1X ONCE 05/28/19 16:45 05/28/19 16:46 DC Ondansetron HCl (Zofran) 4 mg 1X ONCE 05/28/19 16:45 05/28/19 16:46 DC Allergies Allergies Allergies Coded Allergies Type Severity Reaction Last Updated Verified gabapentin Allergy Intermediate Rash 05/25/19 Yes latex Allergy Intermediate rash 11/30/17 Yes Physical Exam Physical Exam Constitutional: Well developed, well nourished, no acute distress, non-toxic appearance. [] HENT: Normocephalic, atraumatic, bilateral external ears normal, oropharynx moist, no oral exudates, nose normal. [] Eyes: PERRLA, EOMI, conjunctiva normal, no discharge. [] Neck: Normal range of motion, no tenderness, supple, no stridor. [] Cardiovascular:Heart rate regular rhythm, no murmur [] Lungs & Thorax: Bilateral breath sounds clear to auscultation [] Abdomen: Bowel sounds normal, soft, and palpation left lower quadrant, no masses, no pulsatile masses. [] Skin: Warm, dry, no erythema, no rash. [] Back: No tenderness, no CVA tenderness. [] Extremities: No tenderness, no cyanosis, no clubbing, ROM intact, no edema. [] Neurologic: Alert and oriented X 3, no focal deficits noted. [] Psychologic: Affect normal, judgement normal, mood normal. [] : Rectal exam reveals tenderness in the perirectal area, there is no evidence of any lesions appreciated, no fluctuance appreciated. Pain with rectal exam. Current Patient Data Vital Signs Vital Signs Date Time Temp Pulse Resp B/P (MAP) Pulse Ox O2 Delivery O2 Flow Rate FiO2 05/28/19 14:27 20 Room Air 05/28/19 14:00 70 151/77 (101) 94 05/28/19 13:11 98.1 98.1 Lab Values Laboratory Tests Test 05/28/19 14:15 White Blood Count 10.4 x10^3/uL (4.0-11.0) Red Blood Count 5.05 x10^6/uL (3.50-5.40) Hemoglobin 15.8 g/dL (12.0-15.5) H Hematocrit 46.2 % (36.0-47.0) Mean Corpuscular Volume 92 fL (79-100) Mean Corpuscular Hemoglobin 31 pg (25-35) Mean Corpuscular Hemoglobin Concent 34 g/dL (31-37) Red Cell Distribution Width 13.2 % (11.5-14.5) Platelet Count 334 x10^3/uL (140-400) Neutrophils (%) (Auto) 90 % (31-73) H Lymphocytes (%) (Auto) 8 % (24-48) L Monocytes (%) (Auto) 2 % (0-9) Eosinophils (%) (Auto) 0 % (0-3) Basophils (%) (Auto) 0 % (0-3) Neutrophils # (Auto) 9.4 x10^3/uL (1.8-7.7) H Lymphocytes # (Auto) 0.8 x10^3/uL (1.0-4.8) L Monocytes # (Auto) 0.2 x10^3/uL (0.0-1.1) Eosinophils # (Auto) 0.0 x10^3/uL (0.0-0.7) Basophils # (Auto) 0.0 x10^3/uL (0.0-0.2) Segmented Neutrophils % 86 % (35-66) H Lymphocytes % 13 % (24-48) L Monocytes % 1 % (0-10) Platelet Estimate Adequate (ADEQUATE) Sodium Level 140 mmol/L (136-145) Potassium Level 4.2 mmol/L (3.5-5.1) Chloride Level 101 mmol/L (98-107) Carbon Dioxide Level 26 mmol/L (21-32) Anion Gap 13 (6-14) Blood Urea Nitrogen 22 mg/dL (7-20) H Creatinine 0.8 mg/dL (0.6-1.0) Estimated GFR (Cockcroft-Gault) 71.5 BUN/Creatinine Ratio 28 (6-20) H Glucose Level 130 mg/dL (70-99) H Calcium Level 9.2 mg/dL (8.5-10.1) Total Bilirubin 0.5 mg/dL (0.2-1.0) Aspartate Amino Transferase (AST) 19 U/L (15-37) Alanine Aminotransferase (ALT) 47 U/L (14-59) Alkaline Phosphatase 67 U/L (46-116) C-Reactive Protein, Quantitative 21.5 mg/L (0-3.3) H Total Protein 7.2 g/dL (6.4-8.2) Albumin 3.7 g/dL (3.4-5.0) Albumin/Globulin Ratio 1.1 (1.0-1.7) Laboratory Tests 05/28/19 14:15 Laboratory Tests 05/28/19 14:15 EKG EKG [] Radiology/Procedures Radiology/Procedures [facility] [address] [place], [place] [id number] IMAGING REPORT Signed PATIENT: CORNELIO MILLS LACCOUNT: [id number] : 1950 LOCATION: ER AGE: 69 SEX: F EXAM STATUS: REG ER ORD. PHYSICIAN: EARNESTINE MELARA MD REASON: abdominal pain, rectal pain without evidence of abscess PROCEDURE: CT ABD PELV W/ IV CONTRST ONLY Axial CT of the abdomen and pelvis were obtained after the administration of 75 cc Isovue 370. Coronal and sagittal reformats are also available. Exposure: One or more of the following individualized dose reduction techniques were utilized for this examination: 1. Automated exposure control 2. Adjustment of the mA and/or kV according to patient size 3. Use of iterative reconstruction technique Indication: Rectal pain without evidence of abscess. Comparison: 01/01/2019. Findings: Heart is unenlarged. The lung bases are clear. Liver is hypodense relative to the spleen. Spleen, kidneys, adrenals gallbladder and pancreas are unremarkable. The stomach, small and large bowel are nondistended. No evidence pathologic wall thickening. There is mild perirectal thickening which is nonspecific. There is trace fluid in the pelvis. No free air. The abdominal aorta is nonaneurysmal. The portal, superior mesenteric and splenic veins are normal in appearance. Bony structures are unremarkable other than moderate lordosis and kyphosis identified. IMPRESSION: 1. Hepatic steatosis. 2. Mild nonspecific perirectal thickening without significant inflammatory change. Electronically signed by: Raf Pacheco MD (05/28/2019 3:29 PM) [facility] DICTATED and SIGNED BY: RAF PACHECO MD DATE: 05/28/19 1529 [] Course & Med Decision Making Course & Med Decision Making Pertinent Labs and Imaging studies reviewed. (See chart for details) []69-year-old female presents to the emergency department with complaints of rectal pain. Patient states she was seen here last week and admitted for allergic reaction and discharged on Tuesday. Tuesday she developed copious amounts of diarrhea, nausea, rectal pain and lower abdominal pain. Patient states the pain has become constant, stabbing sensation. She denies any fever, vomiting. She states she is plan for colonoscopy on Tuesday. Given the continued pain and worsening she presents to the ER for further evaluation. Morphine 4mg/Zofran 4mg IV with improved pain Reassessment 1647, some pain appreciated however not as bad - re dose Morphine 4mg/Zofran 4mg IV CT evaluation of pelvis reveals no acute process, she has perirectal thickening however no sign of inflammation or infection Recommend following up with GI as scheduled PO pain medications provided upon discharge No plan for abx therapy at this time Dragon Disclaimer Dragon Disclaimer This electronic medical record was generated, in whole or in part, using a voice recognition dictation system. Departure Departure Impression: Primary Impression: Rectal pain Disposition: HOME, SELF-CARE Condition: STABLE Referrals: JULIA GEORGE (PCP) Patient Instructions: Pelvic Pain, Female, [id number] Additional Instructions: Recommend follow up with PCP 3 - 5 days Return to the ER with worsening symptoms, intractable pain, fever, altered mental status CT without acute source of infection/abscess or inflammation Recommend keeping appointment as scheduled for tuesday Take new RX for pain as prescribed Scripts Hydrocodone/Apap 5-325 (NORCO 5-325 TABLET) 1 Each Tablet 1-2 TAB PO Q4-6HRS for pain, #14 TAB Prov: EARNESTINE MELARA MD 05/28/19 EARNESTINE MELARA MD May 28, 2019 13:14
[2019-05-28] MEDS ORDERED: MORPHINE SULFATE 4 MG/ML VIAL. IV ONE ×2 (13:15→16:45)
[2019-05-28] MEDS ORDERED: ONDANSETRON PF 4 MG/2 ML VIAL. IV ONE ×2 (13:15→16:45)
[2019-05-28] MEDS ORDERED: IOHEXOL 300 MG/ML 100ML VIAL. IV ONE (13:15)
[2019-05-28] MEDS ORDERED: CONTRAST GIVEN. MC PRN (13:30)
[2019-05-28 14:31] LABS: BASO % 0 % (0-3); EOS % 0 % (0-3); HEMATOCRIT 46.2 % (36.0-47.0); HEMOGLOBIN 15.8 g/dL (12.0-15.5); LYMPH # 0.8 x10^3/uL (1.0-4.8); LYMPH % 8 % (24-48); MEAN CORPUSCULAR HEMOGLOBIN 31 pg (25-35); MEAN CORPUSCULAR HGB CONC 34 g/dL (31-37); MEAN CORPUSCULAR VOLUME 92 fL (79-100); MONO # 0.2 x10^3/uL (0.0-1.1); MONO % 2 % (0-9); NEUT # 9.4 x10^3/uL (1.8-7.7); NEUT % 90 % (31-73); PLATELET COUNT 334 x10^3/uL (140-400); RED BLOOD COUNT 5.05 x10^6/uL (3.50-5.40); RED CELL DISTRIBUTION WIDTH 13.2 % (11.5-14.5); WHITE BLOOD COUNT 10.4 x10^3/uL (4.0-11.0)
[2019-05-28 14:36] LABS: CALCIUM 9.2 mg/dL (8.5-10.1); CREATININE 0.8 mg/dL (0.6-1.0); GFR 71.5; POTASSIUM 4.2 mmol/L (3.5-5.1)
[2019-05-28 14:42] LABS: ALBUMIN 3.7 g/dL (3.4-5.0); ALBUMIN/GLOBULIN RATIO 1.1 (1.0-1.7); C-REACTIVE PROTEIN 21.5 mg/L (0-3.3); TOTAL BILIRUBIN 0.5 mg/dL (0.2-1.0); TOTAL PROTEIN 7.2 g/dL (6.4-8.2)
[2019-05-28 14:55] LABS: % LYMPHS 13 % (24-48); % MONOS 1 % (0-10); % SEGS 86 % (35-66); PLT ESTIMATE ADEQUATE (ADEQUATE)
--- NOTE | 2019-05-28 16:41 | RAD ---
Axial CT of the abdomen and pelvis were obtained after the administration of 75 cc Isovue 370. Coronal and sagittal reformats are also available. Exposure: One or more of the following individualized dose reduction techniques were utilized for this examination: 1. Automated exposure control 2. Adjustment of the mA and/or kV according to patient size 3. Use of iterative reconstruction technique Indication: Rectal pain without evidence of abscess. Comparison: 01/01/2019. Findings: Heart is unenlarged. The lung bases are clear. Liver is hypodense relative to the spleen. Spleen, kidneys, adrenals gallbladder and pancreas are unremarkable. The stomach, small and large bowel are nondistended. No evidence pathologic wall thickening. There is mild perirectal thickening which is nonspecific. There is trace fluid in the pelvis. No free air. The abdominal aorta is nonaneurysmal. The portal, superior mesenteric and splenic veins are normal in appearance. Bony structures are unremarkable other than moderate lordosis and kyphosis identified. IMPRESSION: 1. Hepatic steatosis. 2. Mild nonspecific perirectal thickening without significant inflammatory change. Electronically signed by: Raf Pacheco MD (05/28/2019 3:29 PM) [facility]
[2019-05-28] MEDS ORDERED: HYDR-3164 PO (16:52)
[2019-05-28 17:10] VITALS: BP 141/65
== END 2019-05-28 17:21 | disposition home or self-care (01) ==
LOC: ER 11:28
DX: K62.89 Other specified diseases of anus and rectum (principal); F31.9 Bipolar disorder, unspecified; J45.909 Unspecified asthma, uncomplicated; K76.0 Fatty (change of) liver, not elsewhere classified; Z91.040 Latex allergy status; Z88.8 Allergy status to other drugs, medicaments and biological substances
CPT/HCPCS: 36415; 74177; 80053; 85007; 85025; 86140; 96374; 96375; 96376; 99285; J2270; J2405; Q9967